=== PATIENT | female | born 1980 | race Caucasian/White ===

== ENCOUNTER 2020-04-30 08:57 | Day surgery (SDC) | payer MEDICAID, SELFPAY ==
--- NOTE | 2020-04-28 08:57 | P.CONAN_ITS ---
Documented by User: Apoorva Bush 04/28/20 08:59 HPI - Anesthesia Eval Consult details Narrative: 40yo F for Colonoscopy and EGD [facility] Past Medical History Medical History Abdominal wall mass Asthma History of colitis Surgical History Surgical History Hx of section Hx of hysterectomy Social History Social History Smoking Status: Never smoker Second Hand Smoke Exposure: No Use of substances other than those prescribed or required for medical reasons: No Advance Directives: No Advance Directives Information Provided: No Recently lost weight without trying: No Meds Allergies Allergy/AdvReac Type Severity Reaction Status Date / Time almond Allergy Severe ANAPHYLAXIS Verified 04/23/20 10:44 soy [SOY] Allergy Severe ANAPHYLAXIS Verified 04/23/20 10:44 Home Medications Medication Instructions Recorded Confirmed Type fluoxetine 40 mg PO QAM 04/23/20 04/23/20 History gabapentin 300 mg PO BEDTIME 04/23/20 04/23/20 History ipratropium bromide [Atrovent HFA] 2 puff INHALATION QID 04/23/20 04/23/20 History loratadine 10 mg PO DAILY 04/23/20 04/23/20 History lorazepam 0.5 mg PO QAM 04/23/20 04/23/20 History lorazepam 1 mg PO BEDTIME 04/23/20 04/23/20 History mometasone [Nasonex] 2 spray INTRANASAL DAILY 04/23/20 04/23/20 History Exam Exam Date and Time: April 28, 2020 0857 Pertinent Lab Results Pertinent Lab Results: Laboratory Tests 02/01/20 02/01/20 16:05 16:05 WBC 7.1 Hgb 15.3 Hct 45.9 Plt Count 277 Sodium 141 Potassium 4.6 D Chloride 105 BUN 13 Creatinine 0.82 Assessment and Plan Assessment Anesthesia Assessment: Chart Reviewed Documented by User: Farshad Alaniz 04/30/20 11:25 [facility] Past Medical History Medical History Abdominal wall mass Asthma History of colitis Surgical History Surgical History Hx of section Hx of hysterectomy Social History Social History Smoking Status: Never smoker Second Hand Smoke Exposure: No Use of substances other than those prescribed or required for medical reasons: No Advance Directives: No Advance Directives Information Provided: No Recently lost weight without trying: No Meds Allergies Allergy/AdvReac Type Severity Reaction Status Date / Time almond Allergy Severe ANAPHYLAXIS Verified 04/23/20 10:44 soy [SOY] Allergy Severe ANAPHYLAXIS Verified 04/23/20 10:44 Home Medications Medication Instructions Recorded Confirmed Type fluoxetine 40 mg PO QAM 04/23/20 04/23/20 History gabapentin 300 mg PO BEDTIME 04/23/20 04/23/20 History ipratropium bromide [Atrovent HFA] 2 puff INHALATION QID 04/23/20 04/23/20 History loratadine 10 mg PO DAILY 04/23/20 04/23/20 History lorazepam 0.5 mg PO QAM 04/23/20 04/23/20 History lorazepam 1 mg PO BEDTIME 04/23/20 04/23/20 History mometasone [Nasonex] 2 spray INTRANASAL DAILY 04/23/20 04/23/20 History Exam Airway Mallampati Class: II TM Dist: >3cm Neck ROM: Full Loose/Missing/Broken Teeth: Yes Heart: RRR Assessment and Plan Assessment Anesthesia Assessment: Anesthesia Plan Discussed Final Anesthetic Review NPO: Yes ASA Class: II Final Preanesthetic Review: Consent Obtained/Reviewed Anesthetic Plan Anesthetic Plan: MAC:
[2020-04-30 10:41] LABS: SARS COV2 PCR INHOUSE NEGATIVE (Negative)
[2020-04-30 10:59] VITALS: BMI 30.1
[2020-04-30 11:02] VITALS: BP 119/73; PULSE 83; RESP 18; TEMP 36.6; O2SAT 98
[2020-04-30] MEDS: Lactated Ringers 1,000 ML 100 ML IVCONT (11:12)
--- NOTE | 2020-04-30 11:24 | P.HPSUR_ITS ---
Pre-Procedural Eval Section B Chief Complaint: Epigastric Pain Details of Present Illness: rectal bleeding and upper abdo pain Relevant Family History (Specify if Yes): No Relevant Social History: None Present Medications: see Short Stay Collaborative assessment Medical History: Significant History (rotator cuff) History of Previous Operations: Relevant previous surgery/procedure and date(s) (hysterectomy, c section) Allergies: Allergies Allergy/AdvReac Type Severity Reaction Status Date / Time almond Allergy Severe ANAPHYLAXIS Verified 04/23/20 10:44 soy [SOY] Allergy Severe ANAPHYLAXIS Verified 04/23/20 10:44 Review of Systems Sugical H&P ROS: Negative: Constitution, Cardiovascular, Respiratory, Neurological, Psychiatric, Hem-Onc, Allergic/Immunologic, Gastrointestinal, Genitourinary, Musculoskeletal, Integumentary, Endocrine and Eyes/Ears/Nose/ Throat Exam Surgical H&P Exam: Normal: HEENT, Normal: Heart, Normal: Lungs, Normal: Extremities, Normal: Abdomen, Normal: Skin and Normal: Neurological Plan Diagnosis/Plan: Unchanged Patient has been examined and remains a candidate for the planned procedure
--- NOTE | 2020-04-30 12:01 | P.BOP_ITS ---
Brief Operative Note Date of procedure: 04/30/20 Pre-op diagnosis: epigastric pain, rectal bleeding Post-op diagnosis: same Procedure: Operative Information Procedure Description: EGD, Colonoscopy FLEXIBLE TRANSORAL UPPER GASTROINTESTINAL ENDOSCOPY AND COLONOSCOPY PROCEDURE NOTE UPPER ENDOSCOPY Consent: Indications for the procedure and potential complications of bleeding, perforation, reaction to medications and missed diagnosis were discussed with the patient and informed consent was obtained. Instrument: Olympus GIF H 190 J mid size upper endoscope Monitoring: Vital signs and clinical assessment, continuous EKG monitoring, Pulse oximetry, Carbon Dioxide monitoring and blood pressure monitoring were done throughout the procedure. Procedure: The patient was placed in the left lateral decubitis position and pre-procedure medications were administered and a bite block was placed. The endoscope was inserted into the mouth and advanced under direct vision to the third part of duodenum. A careful inspection was made as the upper endoscope was withdrawn including a retroflexed examination of the proximal stomach; Findings and interventions are described below. Findings: Larynx:normal Esophagus: GE junction at 37 cm, diaphragm hiatus at 37 cm, normal mucosa, random bx taken Stomach: Mild erythema. Biopsies were obtained. Grade 2 flap valve on retroflexed examination of the cardia. Duodenum: Normal bulb and descending duodenum, bx taken Intervention: Biopsies as noted above COLONOSCOPY Instrument: Olympus variable stiffness pediatric scope 190L Colonoscopy Monitoring: Vital signs and clinical assessment, continuous EKG monitoring, Pulse oximetry, Carbon Dioxide monitoring and blood pressure monitoring were done throughout the procedure. Colon withdrawal time was 4 minutes. Procedure: The patient was placed in the left lateral decubitis position and pre-procedure medications were administered. After a digital rectal examination of the ano-rectum, the video colonoscope was inserted into the rectum and advanced through the colon to the cecum/TI. The colonoscope was slowly withdrawn in a retrograde panoramic fashion and the colon mucosa was carefully examined including a retroflexed view of the rectum. Findings and interventions are described below. Procedure Difficulty: Findings: bx taken from TI and random colon Terminal Ileum-normal Cecum:normal Ascending Colon: normal Transverse Colon -normal Descending Colon:normal Sigmoid Colon: normal Rectum: Retroflexion with small internal hemorrhoids, grade I with skin tags Anorectum - normal Colon preparation: [place] Bowel Preparation Scale Right colon; 3 Transverse colon: 3 Left colon; 3 (0 = Unprepared colon segment with mucosa not seen due to solid stool that cannot be cleared. 1 = Portion of mucosa of the colon segment seen, but other areas of the colon segment not well seen due to staining, residual stool and/or opaque liquid. 2 = Minor amount of residual staining, small fragments of stool and/or opaque liquid, but mucosa of colon segment seen well. 3 = Entire mucosa of colon segment seen well with no residual staining, small fragments of stool or opaque liquid) Impression and Post Procedure Diagnosis: Endoscopy Findings: gastritis Colonoscopy Findings: internal hemorrhoids Plan: Await Pathology results Repeat Colonoscopy aged 45-50 yr sof age for screening or earlier if clinically indicated High fiber diet leaflet avoid straining at stool, epsom salts and sitz bath prn, anusol supps or cream prn If H pylori pos then treat Above findings were reviewed with the patient and relevant handouts were provided if indicated. Surgeon: Nida Hsieh MD Anesthesia: MAC Condition: stable Disposition: PACU
[2020-04-30 12:11] VITALS: BP 101/62; PULSE 83; RESP 12; TEMP 36.1; O2SAT 99
[2020-04-30 12:24] VITALS: BP 112/67; PULSE 80; RESP 18; TEMP 36.1; O2SAT 99
--- NOTE | 2020-04-30 12:47 | HO.POSTANES ---
Post Anesthesia Evaluation Post Anesthesia Evaluation Vital Signs: Vital Signs Temp Pulse Resp BP Pulse Ox 04/30/20 12:24 97 F 80 18 112/67 99 04/30/20 12:11 96.9 F 83 12 101/62 99 04/30/20 11:02 97.9 F 83 18 119/73 98 Anesthesia: Monitored Mental Status: Awake Pain Control: Satisfactory Nausea/Vomiting: None Hydration: Adequate Anesthesia-Related Issues: No Anes. Related Issues
== END 2020-04-30 12:55 | disposition home or self-care (01) ==
PROVIDERS: Nurse Practitioner; PCP Student in an Organized Health Care Education/Training Program; Visit Provider Internal Medicine Gastroenterology
PROC: (CPT 45380; principal; 2020-04-30 11:40)
DX: K62.5 Hemorrhage of anus and rectum (principal); K64.0 First degree hemorrhoids; K64.4 Residual hemorrhoidal skin tags; K29.70 Gastritis, unspecified, without bleeding; K52.9 Noninfective gastroenteritis and colitis, unspecified; K44.9 Diaphragmatic hernia without obstruction or gangrene; J45.909 Unspecified asthma, uncomplicated; Z91.018 Allergy to other foods; Z79.51 Long term (current) use of inhaled steroids; Z79.899 Other long term (current) drug therapy
CPT/HCPCS: 45380; 43239; 87635; 88305; 88342; J3010

== ENCOUNTER 2020-07-01 15:32 | Outpatient (REF) | payer MEDICAID, SELFPAY ==
--- NOTE | 2020-07-01 15:39 | XR_ITS ---
EXAMINATION: XR KNEE, RIGHT CLINICAL INFORMATION: Pain COMPARISON: Previous x-ray March 2015 TECHNIQUE: Four views of the right knee. FINDINGS: Bones and soft tissues are normal. No fracture or joint effusion. Alignment is anatomic. Joint spaces are well maintained. No abnormal soft tissue calcification. XR/XR knee RT 4V IMPRESSION: Normal right knee.
== END 2020-07-01 15:33 | disposition home or self-care (01) ==
LOC: HO.XRAY 15:32
PROVIDERS: PCP Student in an Organized Health Care Education/Training Program; Visit Provider Student in an Organized Health Care Education/Training Program
DX: M25.562 Pain in left knee (principal)
CPT/HCPCS: 73564

== ENCOUNTER → 2020-07-03 10:35 | Outpatient (BNVA) | payer MEDICAID, SELFPAY | PROVIDERS: PCP Student in an Organized Health Care Education/Training Program; Visit Provider Internal Medicine Gastroenterology | DX: Z76.89 Persons encountering health services in other specified circumstances (principal) ==

== ENCOUNTER → 2020-07-29 08:25 | Outpatient (BNVA) | payer MEDICAID, SELFPAY | PROVIDERS: PCP Student in an Organized Health Care Education/Training Program; Visit Provider Internal Medicine Gastroenterology | DX: Z76.89 Persons encountering health services in other specified circumstances (principal) ==

== ENCOUNTER → 2020-09-25 11:07 | Outpatient (BNVA) | payer MEDICAID, SELFPAY | PROVIDERS: PCP Student in an Organized Health Care Education/Training Program; Visit Provider Internal Medicine Gastroenterology ==

== ENCOUNTER 2020-10-08 09:23 | Outpatient (REF) | payer MEDICAID, SELFPAY ==
--- NOTE | ~2020-10-08 | XR_ITS ---
EXAMINATION: XR BILATERAL HANDS XR BILATERAL FEET CLINICAL INFORMATION: Pain COMPARISON: 04/14/2014 TECHNIQUE: 4 views of the right hand and wrist, 4 views of the left hand and wrist, 3 views of each foot. FINDINGS: There is no evidence of acute fracture or dislocation of the left foot. Left foot joint spaces are maintained. No destructive bony lesions. No significant soft tissue swelling. There is a small plantar calcaneal spur. No radiopaque foreign body. 3 views of the right foot do not demonstrate any evidence of acute fracture or dislocation. No significant soft tissue swelling. Joint spaces are maintained. No radiopaque foreign body. Plantar calcaneal spur is seen. Views of the right hand and wrist do not demonstrate any evidence of acute fracture or dislocation. Joint spaces maintained. No destructive bony lesions. No significant soft tissue swelling. No erosive changes are seen. Views of the left hand and wrist do not demonstrate any evidence of acute fracture or dislocation. Joint spaces maintained. No significant soft tissue swelling. No erosive changes noted. XR/XR hand wrist LT IMPRESSION: No significant bony abnormality of the hands or feet.
--- NOTE | ~2020-10-08 | XR_ITS ---
EXAMINATION: XR BILATERAL HANDS XR BILATERAL FEET CLINICAL INFORMATION: Pain COMPARISON: 04/14/2014 TECHNIQUE: 4 views of the right hand and wrist, 4 views of the left hand and wrist, 3 views of each foot. FINDINGS: There is no evidence of acute fracture or dislocation of the left foot. Left foot joint spaces are maintained. No destructive bony lesions. No significant soft tissue swelling. There is a small plantar calcaneal spur. No radiopaque foreign body. 3 views of the right foot do not demonstrate any evidence of acute fracture or dislocation. No significant soft tissue swelling. Joint spaces are maintained. No radiopaque foreign body. Plantar calcaneal spur is seen. Views of the right hand and wrist do not demonstrate any evidence of acute fracture or dislocation. Joint spaces maintained. No destructive bony lesions. No significant soft tissue swelling. No erosive changes are seen. Views of the left hand and wrist do not demonstrate any evidence of acute fracture or dislocation. Joint spaces maintained. No significant soft tissue swelling. No erosive changes noted. XR/XR hand wrist RT IMPRESSION: No significant bony abnormality of the hands or feet.
--- NOTE | ~2020-10-08 | XR_ITS ---
EXAMINATION: XR BILATERAL HANDS XR BILATERAL FEET CLINICAL INFORMATION: Pain COMPARISON: 04/14/2014 TECHNIQUE: 4 views of the right hand and wrist, 4 views of the left hand and wrist, 3 views of each foot. FINDINGS: There is no evidence of acute fracture or dislocation of the left foot. Left foot joint spaces are maintained. No destructive bony lesions. No significant soft tissue swelling. There is a small plantar calcaneal spur. No radiopaque foreign body. 3 views of the right foot do not demonstrate any evidence of acute fracture or dislocation. No significant soft tissue swelling. Joint spaces are maintained. No radiopaque foreign body. Plantar calcaneal spur is seen. Views of the right hand and wrist do not demonstrate any evidence of acute fracture or dislocation. Joint spaces maintained. No destructive bony lesions. No significant soft tissue swelling. No erosive changes are seen. Views of the left hand and wrist do not demonstrate any evidence of acute fracture or dislocation. Joint spaces maintained. No significant soft tissue swelling. No erosive changes noted. XR/XR foot LT 2V IMPRESSION: No significant bony abnormality of the hands or feet.
--- NOTE | ~2020-10-08 | XR_ITS ---
EXAMINATION: XR BILATERAL HANDS XR BILATERAL FEET CLINICAL INFORMATION: Pain COMPARISON: 04/14/2014 TECHNIQUE: 4 views of the right hand and wrist, 4 views of the left hand and wrist, 3 views of each foot. FINDINGS: There is no evidence of acute fracture or dislocation of the left foot. Left foot joint spaces are maintained. No destructive bony lesions. No significant soft tissue swelling. There is a small plantar calcaneal spur. No radiopaque foreign body. 3 views of the right foot do not demonstrate any evidence of acute fracture or dislocation. No significant soft tissue swelling. Joint spaces are maintained. No radiopaque foreign body. Plantar calcaneal spur is seen. Views of the right hand and wrist do not demonstrate any evidence of acute fracture or dislocation. Joint spaces maintained. No destructive bony lesions. No significant soft tissue swelling. No erosive changes are seen. Views of the left hand and wrist do not demonstrate any evidence of acute fracture or dislocation. Joint spaces maintained. No significant soft tissue swelling. No erosive changes noted. XR/XR foot RT 2V IMPRESSION: No significant bony abnormality of the hands or feet.
[2020-10-08 10:54] LABS: MANUAL DIFF FLAG NO
[2020-10-08 11:02] LABS: Basophils Percent Auto 0.6 % (0-2); Eosinophils Absolute Auto 0.1 X10*3/uL (0.0-0.4); Eosinophils Percent Auto 2.5 % (0-4); Hematocrit 44.5 % (37-47); Hemoglobin 14.6 g/dl (12.0-16.0); Imm Gran Abs Auto 0.01 X10*3/uL (0.00-0.03); Imm Gran Pct Auto 0.2 % (0.0-0.4); Lymphocytes Absolute Auto 1.5 X10*3/uL (1.2-4.9); Lymphocytes Percent Auto 28.6 % (20-40); Mean Corpuscular HGB Conc 32.8 g/dl (31.0-35.0); Mean Corpuscular Volume 91.6 fL (80-98); Mean Platelet Volume 10.2 fL (9.4-12.3); Monocytes Absolute Auto 0.4 X10*3/uL (0.1-1.2); Monocytes Percent Auto 7.4 % (2-11); Neutrophils Absolute Auto 3.1 X10*3/uL (2.0-8.3); Neutrophils Percent Auto 60.7 % (45-73); Platelet Count 288 X10*3/uL (160-400); Red Blood Count 4.86 X10*6/uL (4.20-5.50); Red Cell Distribution Width 12.6 % (11.0-16.0); White Blood Count 5.1 X10*3/uL (4.8-10.8)
[2020-10-08 11:26] LABS: Alanine Aminotransferase 33 U/L (0-31); Albumin Level 4.3 g/dL (3.5-5.0); Alkaline Phosphatase 73 U/L (39-117); Anion Gap 13 (12-20); Aspartate Amino Transferase 25 U/L (5-31); Bilirubin Total 0.3 mg/dL (0.0-1.0); Blood Urea Nitrogen 16 mg/dL (9-16); C Reactive Protein 0.27 mg/dL (< or = 0.50); Calcium 9.6 mg/dL (8.4-10.2); Carbon Dioxide 25 mmol/L (22-29); Chloride 107 mmol/L (96-108); Estimated Glomerular Filt Rate > 60; Glucose Random 97 mg/dL (60-115); Potassium 4.7 mmol/L (3.3-5.1); Rheumatoid Factor < 15.0 IU/mL (<15.0); Sodium 140 mmol/L (135-145); Total Protein 7.3 g/dL (6.5-8.0)
[2020-10-08 11:38] LABS: HBsAGNum1 0.19 S/CO (0.00-0.99); Hepatitis B Surface Antigen Negative (Negative)
[2020-10-08 11:56] LABS: HBS Num1 27.18 mIU/mL (0-7.99); HBc Num1 0.07 S/CO (0.00-0.79); Hepatitis B Core Antibody Nonreactive (Nonreactive); ~HepC Num1 0.08 S/CO (0.00-0.79); ~Hepatitis B Surface Antibody REACTIVE (Nonreactive); ~Hepatitis C Antibody Nonreactive (Nonreactive)
[2020-10-08 12:46] LABS: Erythrocyte Sedimentation Rate 6 MM/HR (0-20)
[2020-10-09 04:48] LABS: Hepatitis A Antibody IgM 0.22 Index (0-0.79); ~Hepatitis A Antibody IgM Nonreactive (Nonreactive)
[2020-10-09 12:12] LABS: Antibody to SS-A Antigen <1.0 NEG AI (<1.0 NEG); Antibody to SS-B Antigen <1.0 NEG AI (<1.0 NEG)
[2020-10-09 22:17] LABS: Cyclic Citrullinated Peptide <16 UNITS
[2020-10-10 19:16] LABS: TS Negative Control Passed; TS Panel A 0; TS Panel B 0; TS Positive Control Passed; TSpotTB Negative (SeeBelow)
[2020-10-12 23:16] LABS: Anti Nuclear Antibody Screen POSITIVE (NEGATIVE); Anti Nuclear Antibody Titer 1:40 titer
== END 2020-10-08 09:24 | disposition home or self-care (01) ==
LOC: HO.LAB 09:23
PROVIDERS: PCP Student in an Organized Health Care Education/Training Program; Visit Provider Student in an Organized Health Care Education/Training Program
DX: M25.50 Pain in unspecified joint (principal); Z79.899 Other long term (current) drug therapy
CPT/HCPCS: 36415; 73110; 73130; 73620; 80053; 85025; 85652; 86038; 86039; 86140; 86200; 86235; 86431; 86481; 86704; 86706; 86709; 86803; 87340; 99202

== ENCOUNTER → 2020-10-14 08:49 | Outpatient (BNVA) | payer MEDICAID, SELFPAY | PROVIDERS: PCP Student in an Organized Health Care Education/Training Program; Visit Provider Student in an Organized Health Care Education/Training Program | DX: M25.50 Pain in unspecified joint (principal); M79.7 Fibromyalgia | CPT/HCPCS: 99212 ==

== ENCOUNTER → 2020-10-19 09:49 | Outpatient (BNVA) | payer MEDICAID, SELFPAY | PROVIDERS: PCP Student in an Organized Health Care Education/Training Program; Visit Provider Internal Medicine Gastroenterology ==

== ENCOUNTER 2021-01-17 14:39 | Emergency (ER) | payer MEDICAID, SELFPAY ==
--- NOTE | ~2021-01-17 | XR_ITS ---
EXAMINATION: XR SHOULDER, LEFT CLINICAL INFORMATION: Left shoulder pain. COMPARISON: None TECHNIQUE: Three views of the left shoulder. FINDINGS: The bones and soft tissues are normal. No fracture. Glenohumeral and acromioclavicular alignment is anatomic with normal joint space. No abnormal soft tissue calcifications. XR/XR shoulder LT min 2V IMPRESSION: Unremarkable radiographic appearance of the left shoulder.
[2021-01-17 14:45] VITALS: BP 107/60; PULSE 89; RESP 18; TEMP 36.3; O2SAT 98; BMI 29.7
[2021-01-17 15:15] VITALS: BP 110/72; PULSE 88; RESP 18; TEMP 36.6; O2SAT 99
--- NOTE | 2021-01-17 15:24 | ED_ITS ---
HPI - Extremity Problem General Chief complaint: Extremity Injury, Upper Stated complaint: L SHOULDER PAIN Time Seen by Provider: 01/17/21 14:51 History of Present Illness HPI Narrative: patient complains of left shoulder pain worse with movement over the past several days without any known injury no neck pain no numbness weakness or tingling Related Data Home Medications Medication Instructions Recorded Confirmed ipratropium bromide [Atrovent HFA] 2 puff INHALATION QID 04/23/20 10/14/20 loratadine 10 mg PO DAILY 04/23/20 10/14/20 lorazepam 0.5 mg PO QAM 04/23/20 10/14/20 mometasone [Nasonex] 2 spray INTRANASAL DAILY 04/23/20 10/14/20 ibuprofen 800 mg tablet 800 mg PO Q8H 10/08/20 10/14/20 Previous Rx's Medication Instructions Recorded hydrocortisone 2.5 % topical cream 1 appl CO BID-QID PRN #30 g 07/03/20 with perineal applicator ondansetron HCl 4 mg tablet 4 mg PO Q8H PRN #30 tab 07/03/20 bisacodyl 5 mg tablet,delayed 10 mg PO ONCE 1 Days #2 tab 07/23/20 release polyethylene glycol 3350 17 238 g PO ONCE 1 Days #238 g 07/23/20 gram/dose oral powder pantoprazole 40 mg tablet,delayed 40 mg PO DAILY #90 tab 10/19/20 release Allergies Allergy/AdvReac Type Severity Reaction Status Date / Time almond Allergy Severe ANAPHYLAXIS Verified 01/17/21 14:45 soy [SOY] Allergy Severe ANAPHYLAXIS Verified 01/17/21 14:45 Review of Systems Review of Systems: positive for left shoulder pain Negatives are no fever no chills no dizziness no weakness no headache no neck pain no chest pain no shortness of breath no numbness weakness or tingling no skin rash no other extremity pain or swelling Yes all other systems are reviewed and are negative PMFSH Past Medical History Source: nursing notes reviewed Medical History Abdominal wall mass Asthma History of colitis Surgical History History of colonoscopy Hx of section Hx of endoscopy Hx of hysterectomy Family History Family History Father No problems noted. Mother No problems noted. Social History Social History (Updated 10/19/20 @ 09:51 by SARITA Rm) Household Members: Children Alcohol intake: current Alcohol intake frequency: does not drink Second Hand Smoke Exposure: No Advance Directives: No Advance Directives Information Provided: No Physical Exam Vital Signs: Vital Signs: Last Vital Signs Temp 97.9 F 01/17/21 15:15 Pulse 88 01/17/21 15:15 Resp 18 01/17/21 15:15 BP 110/72 01/17/21 15:15 Pulse Ox 99 01/17/21 15:15 Body Mass Index 29.7 general appearance no distress Head is normocephalic atraumatic Neck is supple Chest is clear Heart no murmur Extremities the right shoulder has anterior tenderness, range of motion mildly limited on extension external rotation in abduction by pain, no redness no warmth, skin is normal, neurovascular intact distal Other extremities normal Skin no rash Neuro no gross motor or sensory deficit Course Course Course Narrative: left shoulder x-ray was normal Patient pain in left shoulder but good range of motion and good use of the shoulder is advised to follow with orthopedics and is well-appearing and is discharged Discharge Plan Discharge Clinical Impression: Arthralgia of left shoulder region Patient Disposition: Home, Self-Care Additional Instructions: x-ray did not reveal any acute problem Exam showed you could have tendinitis or possibly rotator cuff issues If this does not resolve with rest over the next week or 2 follow with orthopedist for further evaluation and possible steroid shot Return any time any worse condition or any concerns Prescriptions: No Action lorazepam 0.5 mg Tablet 0.5 mg PO QAM RF: 0 mometasone [Nasonex] 50 mcg/actuation [place],Non-Aerosol 2 spray INTRANASAL DAILY RF: 0 loratadine 10 mg Tablet 10 mg PO DAILY RF: 0 Atrovent HFA 17 mcg/actuation Hfa Aerosol Inhaler 2 puff INHALATION QID RF: 0 hydrocortisone [Anusol-HC] 2.5 % cream with perineal applicator 1 appl CO BID-QID PRN (Reason: hemorrhoids) Qty: 30 RF: 0 ondansetron HCl [Zofran] 4 mg tablet 4 mg PO Q8H PRN (Reason: nausea and vomiting) Qty: 30 RF: 1 ibuprofen 800 mg tablet 800 mg PO Q8H RF: 0 pantoprazole 40 mg tablet,delayed release (DR/EC) 40 mg PO DAILY Qty: 90 RF: 1 bisacodyl [Dulcolax (bisacodyl)] 5 mg tablet,delayed release (DR/EC) 10 mg PO ONCE 1 Days Qty: 2 RF: 0 polyethylene glycol 3350 [Miralax] 17 gram/dose powder 238 g PO ONCE 1 Days Qty: 238 RF: 0 Referrals: Gomez Sanchez MD [Physician] - 2 days Interventions: ED Discharge Assessment Last Done: 01/17/21 15:51 Discharge Date/Time: 01/17/21 15:53
== END 2021-01-17 15:53 | disposition home or self-care (01) ==
PROVIDERS: Emergency Provider Emergency Medicine; PCP Student in an Organized Health Care Education/Training Program
DX: M25.512 Pain in left shoulder (principal)
CPT/HCPCS: 73030; 99282; 99283

== ENCOUNTER → 2021-02-09 14:00 | Outpatient (BNVA) | payer MEDICAID, SELFPAY | PROVIDERS: PCP Student in an Organized Health Care Education/Training Program; Visit Provider Physician Assistant | DX: M75.42 Impingement syndrome of left shoulder (principal); Z91.018 Allergy to other foods | CPT/HCPCS: 99202 ==

== ENCOUNTER 2021-02-23 08:12 | Outpatient (REF) | payer MEDICAID, SELFPAY | END 2021-02-23 08:13 | disposition home or self-care (01) | LOC: HO.HOSX 08:12 | PROVIDERS: Visit Provider Physician Assistant | DX: Z13.89 Encounter for screening for other disorder (principal) ==

== ENCOUNTER → 2021-03-26 10:47 | Outpatient (BNVA) | payer MEDICAID, SELFPAY | PROVIDERS: Visit Provider Internal Medicine Gastroenterology | DX: K62.5 Hemorrhage of anus and rectum (principal) | CPT/HCPCS: 99212 ==

== ENCOUNTER → 2021-04-09 13:28 | Outpatient (BNVA) | payer MEDICAID, SELFPAY | PROVIDERS: PCP Student in an Organized Health Care Education/Training Program; Visit Provider Physician Assistant | DX: M54.12 Radiculopathy, cervical region (principal); M75.42 Impingement syndrome of left shoulder | CPT/HCPCS: 99212 ==

== ENCOUNTER → 2021-05-05 14:25 | Outpatient (BNVA) | payer MEDICAID, SELFPAY | PROVIDERS: PCP Student in an Organized Health Care Education/Training Program; Visit Provider Surgery | DX: K64.4 Residual hemorrhoidal skin tags (principal); K64.8 Other hemorrhoids | CPT/HCPCS: 46600; 99212 ==

== ENCOUNTER → 2021-05-07 13:02 | Outpatient (BNVA) | payer MEDICAID, SELFPAY | PROVIDERS: PCP Student in an Organized Health Care Education/Training Program; Visit Provider Nurse Practitioner Family | DX: M54.16 Radiculopathy, lumbar region (principal); Z91.018 Allergy to other foods | CPT/HCPCS: 99202 ==

== ENCOUNTER 2021-07-26 10:04 | Outpatient (RCR) | payer MEDICAID, SELFPAY ==
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
== END 2021-08-30 14:33 | disposition home or self-care (01) ==
LOC: HO.PT 10:04
PROVIDERS: PCP Student in an Organized Health Care Education/Training Program; Visit Provider Nurse Practitioner Family
DX: M79.18 Myalgia, other site (principal); M54.2 Cervicalgia
CPT/HCPCS: 97110; 97162; 97530

== ENCOUNTER 2021-09-08 07:52 | Outpatient (REF) | payer MEDICAID, SELFPAY ==
--- NOTE | ~2021-09-08 | XR_ITS ---
EXAMINATION: AP STANDING BOTH KNEES SUNRISE AND LATERAL VIEWS OF THE LEFT KNEE CLINICAL INFORMATION: Left knee pain. COMPARISON: 03/26/2015. TECHNIQUE: AP standing views of both knees and sunrise and lateral views of the left knee. FINDINGS: AP standing views of both knees do not demonstrate any evidence of acute fracture or dislocation. The medial and lateral joint space compartments appear maintained. [place] and lateral views of the left knee demonstrate a normal-appearing patellofemoral joint. No knee effusion is appreciated. XR/XR knee standing BI IMPRESSION: No significant abnormality is seen on AP standing views of both knees as well as left knee lateral and sunrise views.
--- NOTE | ~2021-09-08 | XR_ITS ---
EXAMINATION: AP STANDING BOTH KNEES SUNRISE AND LATERAL VIEWS OF THE LEFT KNEE CLINICAL INFORMATION: Left knee pain. COMPARISON: 03/26/2015. TECHNIQUE: AP standing views of both knees and sunrise and lateral views of the left knee. FINDINGS: AP standing views of both knees do not demonstrate any evidence of acute fracture or dislocation. The medial and lateral joint space compartments appear maintained. [place] and lateral views of the left knee demonstrate a normal-appearing patellofemoral joint. No knee effusion is appreciated. XR/XR knee LT 2V IMPRESSION: No significant abnormality is seen on AP standing views of both knees as well as left knee lateral and sunrise views.
== END 2021-09-08 07:53 | disposition home or self-care (01) ==
LOC: HO.HOSX 07:52
PROVIDERS: Visit Provider Physician Assistant
DX: M23.92 Unspecified internal derangement of left knee (principal)
CPT/HCPCS: 73560; 73565; 99212

== ENCOUNTER 2022-01-11 19:07 | Emergency (ER) | payer MEDICAID, SELFPAY ==
--- NOTE | ~2022-01-11 | CT_ITS ---
EXAMINATION: CT ABDOMEN AND PELVIS WITHOUT CONTRAST CLINICAL INFORMATION: Left-sided flank pain COMPARISON: CT abdomen pelvis 02/03/2020 TECHNIQUE: Multidetector volumetric imaging was performed from the superior aspect of the liver through the pubic symphysis. Sagittal and coronal reformatted images were obtained on the technologist's workstation. This CT examination was performed using dose optimization techniques as appropriate, variously including the following: *Automated exposure control *Adjustment of mA and/or kV according to patient size (this includes techniques or standardized protocols for targeted exams where dose is matched to indication/reason for exam; i.e. extremities or head) *Use of iterative reconstruction technique DLP: 584 mGy-cm FINDINGS: LUNG BASES: The visualized lung bases are unremarkable. LIVER, GALLBLADDER, AND BILIARY TREE: The liver is normal in size, shape, and attenuation. No focal hepatic lesion or biliary ductal dilatation is present. The gallbladder is unremarkable with no evidence of radiopaque gallstones, gallbladder wall thickening, or obvious pericholecystic inflammatory changes. PANCREAS: Unremarkable. SPLEEN: Unremarkable. ADRENAL GLANDS: There is a stable 1.4 cm fat density right adrenal benign adenoma. The left adrenal gland appears normal. KIDNEYS AND URETERS: The kidneys are normal in size, shape, and attenuation. At least 6 tiny punctate nonobstructing calculi are present on the left kidney with with about 7 similar tiny punctate calculi noted on the right. The largest calculus is on the left measuring 3 mm (4:215). Appearances are similar to prior. No hydronephrosis, hydroureter, or ureteral calculi seen. No perinephric stranding. BLADDER: Unremarkable. GASTROINTESTINAL TRACT: The small and large bowel are unremarkable. The appendix is unremarkable. ABDOMINAL WALL: No significant hernia is appreciated. LYMPH NODES: Normal. VASCULAR: Unremarkable. PELVIC VISCERA: Unremarkable. OSSEOUS STRUCTURES: Unremarkable. CT/CT abdomen pelvis wo con IMPRESSION: Bilateral nonobstructing renal calculi. No other significant abnormality is seen. Fleischner guidelines were followed.
[2022-01-11 20:49] VITALS: BP 130/83; PULSE 75; RESP 15; TEMP 36.8; O2SAT 100; BMI 30.1
--- NOTE | 2022-01-11 21:26 | ED_ITS ---
HPI - Female Genitourinary General Chief complaint: Urogenital-Female Stated complaint: left kidney pain Source: patient Mode of arrival: ambulatory Limitations: no limitations History of Present Illness HPI Narrative: 41-year-old female presents with 2 days of flank pain, urinary urgency, headaches, and nausea. Did note that for several weeks she has had intermittent sharp stabbing starting from the left flank going to the abdomen. She does have a history of kidney stones with infection. She did take some Tylenol with poor effect earlier today. She does not report fevers, chills, abdominal distention, vomiting, chest pain and palpitations, shortness of breath, shortness of breath on exertion, or edema. MD elicited complaint: flank pain and difficulty urinating Pertinent past history: pyelonephritis Onset (ago): day(s) (2) Location of symptoms: LLQ and flank Severity: moderate Severity scale (1-10): 5 Quality of pain: cramping, sharp and stabbing Consistency: intermittent and progressively worsening Vaginal discharge: none Vaginal bleeding: none Urinary symptoms: Urgency, Frequency and Flank Pain Exacerbating factors: urination and movement Relieving factors: none Associated symptoms: headaches, loss of appetite and nausea Treatment prior to arrival: none Sexual activity: No Patient : No Related Data Home Medications Medication Instructions Recorded Confirmed ipratropium bromide 17 2 puff inhalation QID 04/23/20 05/05/21 mcg/actuation HFA aerosol inhaler (Atrovent HFA) loratadine 10 mg tablet 10 mg PO DAILY 04/23/20 05/05/21 lorazepam 0.5 mg tablet 0.5 mg PO QAM 04/23/20 05/05/21 mometasone 50 mcg/actuation nasal 2 spray intranasal DAILY 04/23/20 05/05/21 spray (Nasonex) ibuprofen 800 mg tablet 800 mg PO Q8H 10/08/20 05/05/21 Previous Rx's Medication Instructions Recorded hydrocortisone 2.5 % topical cream 1 appl [place] BID-QID PRN hemorrhoids 07/03/20 with perineal applicator #30 grams (Anusol-HC) ondansetron HCl 4 mg tablet 4 mg PO Q8H PRN nausea and 07/03/20 (Zofran) vomiting #30 tabs bisacodyl 5 mg tablet,delayed 10 mg PO ONCE Bowel Preparation 1 07/23/20 release (Dulcolax (bisacodyl)) day #2 tabs polyethylene glycol 3350 17 238 g PO ONCE 1 day #238 grams 07/23/20 gram/dose oral powder (Miralax) gabapentin 100 mg capsule 100 mg PO BEDTIME #60 caps 03/26/21 ondansetron 4 mg disintegrating 4 mg PO Q8H #60 tabs 03/26/21 tablet pantoprazole 40 mg tablet,delayed 40 mg PO DAILY #90 tabs 05/19/21 release celecoxib 200 mg capsule (Celebrex) 200 mg PO BID shoulder impingement 09/08/21 30 days #60 caps ibuprofen 600 mg tablet 600 mg PO Q6H PRN pain #30 tabs 01/11/22 tamsulosin 0.4 mg capsule (Flomax) 0.4 mg PO DAILY 21 days #21 caps 01/11/22 Allergies Allergy/AdvReac Type Severity Reaction Status Date / Time almond Allergy Severe ANAPHYLAXIS Verified 05/07/21 13:12 soy [SOY] Allergy Severe ANAPHYLAXIS Verified 05/07/21 13:12 Review of Systems Review of Systems: Constitutional: No Fever, No Chills ENT/Mouth: No sore throat Eyes: No Eye Pain, No Swelling, No Redness Cardiovascular: No Chest Pain, No SOB Respiratory: No Cough, No Sputum, No Wheezing Gastrointestinal: positive Nausea, positive Vomiting, No Diarrhea, positive abdominal pain Genitourinary: positive Dysuria, positive urinary frequency, positive Hematuria, positive Flank Pain, no hesitancy Musculoskeletal: No joint pain, No Myalgias Skin: No Skin Lesions, No rash Neuro: No Weakness, No Numbness, No Headache Psych: No Anxiety/Panic, No Depression Heme/Lymph: No Bruising, No Lymphadenopathy Endocrine: No Polyuria, No Polydipsia Yes all other systems are reviewed and are negative [facility] Past Medical History Attestation statement: The following information was validated with the patient. Source: old records reviewed Medical History Abdominal wall mass Asthma History of colitis Surgical History History of colonoscopy Hx of section Hx of endoscopy Hx of hysterectomy Family History Family History Father No problems noted. Mother No problems noted. 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 Oriented X3. Mild distress. Eyes: Pupils equal, round and reactive to light. ENT: Pharynx normal. Neck: Normal inspection. Neck supple. CVS: Normal heart rate and rhythm. Pulses normal. Respiratory: No respiratory distress. Breath sounds normal. Abdomen: Soft and nontender. Left CVA tenderness. Skin: Skin warm and dry. Normal skin color. Normal skin turgor. Extremities: No lower extremity edema. Moves all extremities against resistance. Neuro: No motor deficit. No sensory deficit. Cranial nerves 2-12 intact. Course Course Course Narrative: 41-year-old female presents with flank pain, nausea, vomiting, and urinary symptoms with a history of pyelonephritis. Physical exam is unremarkable with the exception of left-sided CVA tenderness. Labs are unremarkable. Patient does have history of [place] we will order kidney stone, hydro, pyelo. 23:27 CT scan shows multiple bilateral nonobstructing kidney stones. No indication of hydro pyelo. Will prescribe Flomax, Motrin, and have patient follow-up with Urology as an outpatient. Patient verbalized understanding of and agrees to plan of care discharge home. Verbalized understanding of signs and symptoms indicating need for emergent intervention. MDM - Female Genitourinary MDM Narrative Medical decision making narrative: Kidney stone, pyelo, hydro Differential Diagnosis Differential diagnosis: Likely urinary tract infection, cervicitis and cystitis Medical Records Attestation: I reviewed the patient's medical records. Lab Data Attestation: I reviewed the patient's lab results. Result diagrams: 01/11/22 21:38 01/11/22 21:38 Labs: Lab Results 01/11/22 01/11/22 01/11/22 Range/Units 21:37 21:38 21:38 WBC 8.1 (4.8-10.8) X10*3/uL RBC 4.93 (4.20-5.50) X10*6/uL Hgb 14.9 (12.0-16.0) g/dl Hct 44.3 (37.0-47.0) % MCV 89.9 (80.0-98.0) fL MCH 30.2 (27.0-33.0) pg MCHC 33.6 (31.0-35.0) g/dl RDW 12.7 (11.0-16.0) % Plt Count 313 (160-400) X10*3/uL MPV 9.4 (9.4-12.3) fL Immature Gran % (Auto) 0.2 (0.0-0.4) % Neut % (Auto) 59.9 (45-73) % Lymph % (Auto) 31.2 (20-40) % [place] % (Auto) 7.6 (2-11) % Eos % (Auto) 0.7 (0-4) % Baso % (Auto) 0.4 (0-2) % Lymph # (Auto) 2.5 (1.2-4.9) X10*3/uL [place] # (Auto) 0.6 (0.1-1.2) X10*3/uL Eos # (Auto) 0.1 (0.0-0.4) X10*3/uL Baso # (Auto) 0.0 (0.0-0.2) X10*3/uL Abs Immat Gran (auto) 0.02 (0.00-0.03) X10*3/uL Absolute Neuts (auto) 4.9 (2.0-8.3) x10*3/uL Absolute Nucleated RBC 0.000 (0.0-0.012) X10*3/uL Nucleated RBC % (auto) 0.0 (0.0-0.2) /100WBC Sodium 139 (135-145) mmol/L Potassium 3.9 (3.3-5.1) mmol/L Chloride 105 (96-108) mmol/L Carbon Dioxide 27 (22-29) mmol/L Anion Gap 11 L (12-20) BUN 10 (9-16) mg/dL Creatinine 0.75 (0.5-1.4) mg/dL Estim Creat Clear Calc 98.0 Estimated GFR > 60 Random Glucose 89 (60-115) mg/dL Calcium 9.7 (8.4-10.2) mg/dL Total Bilirubin 0.4 (0.0-1.0) mg/dL AST 26 (5-31) U/L ALT 27 (0-31) U/L Alkaline Phosphatase 83 (39-117) U/L Total Protein 7.6 (6.5-8.0) g/dL Albumin 4.3 (3.5-5.0) g/dL Urine Color YELLOW Urine Appearance CLEAR Urine pH 6.0 (5.0-8.0) Ur Specific [place] 1.025 (1.005-1.025) Urine Protein NEG (NEG-TRACE) MG/DL Urine Glucose (UA) NEG (NEG) MG/DL Urine Ketones NEG (NEG) MG/DL Urine Blood TRACE (NEG) Urine Nitrite NEG (NEG) Ur Leukocyte Esterase NEG (NEG) Urine RBC 0-2 (0) /HPF Urine WBC 0-2 (0-4) /HPF Ur Squamous Epith Cells 2+ /LPF Urine Bacteria TRACE /LPF Urine Mucus 1+ /LPF Imaging Data CT abdomen pelvis: Attestation: I personally reviewed and interpreted this imaging study as follows: Radiologist's impression: FINDINGS: LUNG BASES: The visualized lung bases are unremarkable.? LIVER, GALLBLADDER, AND BILIARY TREE: The liver is normal in size, shape, and attenuation. No focal hepatic lesion or biliary ductal dilatation is present. The gallbladder is unremarkable with no evidence of radiopaque gallstones, gallbladder wall thickening, or obvious pericholecystic inflammatory changes.? PANCREAS: Unremarkable.? SPLEEN: Unremarkable.? ADRENAL GLANDS: There is a stable 1.4 cm fat density right adrenal benign adenoma. The left adrenal gland appears normal.? KIDNEYS AND URETERS: The kidneys are normal in size, shape, and attenuation. At least 6 tiny punctate nonobstructing calculi are present on the left kidney with with about 7 similar tiny punctate calculi noted on the right. The largest calculus is on the left measuring 3 mm (4:215). Appearances are similar to prior. No hydronephrosis, hydroureter, or ureteral calculi seen. No perinephric stranding. ? BLADDER: Unremarkable.? GASTROINTESTINAL TRACT: The small and large bowel are unremarkable. The appendix is unremarkable.? ABDOMINAL WALL: No significant hernia is appreciated.? LYMPH NODES: Normal. VASCULAR: Unremarkable. PELVIC VISCERA: Unremarkable.? OSSEOUS STRUCTURES: Unremarkable.? CT/CT abdomen pelvis wo con IMPRESSION: Bilateral nonobstructing renal calculi. No other significant abnormality is seen. ? Fleischner guidelines were followed. Discharge Plan Discharge Clinical Impression: Kidney stone on left side, Kidney stone on right side Patient Disposition: Home, Self-Care Instructions: Kidney Stones (ED) Additional Instructions: You were evaluated for abdominal pain. CT scan of abdomen pelvis indicates multiple bilateral kidney stones that are nonobstructing. Please follow-up with Urology. I referred you to Dr. Lam. Please call and request appointment for evaluation Take Flomax 0.4 mg daily. Take Motrin 600 mg every 6 hours as needed for pain management. Drink plenty of fluids. Thank you for choosing this emergency department for evaluation. Please follow-up with primary care physician as needed. Return to the emergency depart ment for any new, concerning, or worsening symptoms. Prescriptions: New tamsulosin [Flomax] 0.4 mg capsule 0.4 mg PO DAILY 21 Days Qty: 21 0RF ibuprofen 600 mg tablet 600 mg PO Q6H PRN (Reason: pain) Qty: 30 0RF No Action pantoprazole 40 mg tablet,delayed release (DR/EC) 40 mg PO DAILY Qty: 90 1RF lorazepam 0.5 mg Tablet 0.5 mg PO QAM mometasone [Nasonex] 50 mcg/actuation [place],Non-Aerosol 2 spray INTRANASAL DAILY loratadine 10 mg Tablet 10 mg PO DAILY Atrovent HFA 17 mcg/actuation Hfa Aerosol Inhaler 2 puff INHALATION QID hydrocortisone [Anusol-HC] 2.5 % cream with perineal applicator 1 appl [place] BID-QID PRN (Reason: hemorrhoids) Qty: 30 0RF ondansetron HCl [Zofran] 4 mg tablet 4 mg PO Q8H PRN (Reason: nausea and vomiting) Qty: 30 1RF ibuprofen 800 mg tablet 800 mg PO Q8H ondansetron 4 mg tablet,disintegrating 4 mg PO Q8H Qty: 60 0RF gabapentin 100 mg capsule 100 mg PO BEDTIME Qty: 60 2RF bisacodyl [Dulcolax (bisacodyl)] 5 mg tablet,delayed release (DR/EC) 10 mg PO ONCE 1 Days Qty: 2 0RF Rx Instructions: Take 2 tablets at 12:00pm the day before your procedure, bowel prep polyethylene glycol 3350 [Miralax] 17 gram/dose powder 238 g PO ONCE 1 Days Qty: 238 0RF Rx Instructions: Take as directed by mouth, bowel prep celecoxib [Celebrex] 200 mg capsule 200 mg PO BID 30 Days Qty: 60 0RF Referrals: Anshu Lam MD [Physician] - (Bilateral kidney stones) Stand Alone Forms: Work/School Release
[2022-01-11 21:44] LABS: MANUAL DIFF FLAG NO
[2022-01-11 21:46] LABS: Basophils Percent Auto 0.4 % (0-2); Eosinophils Absolute Auto 0.1 X10*3/uL (0.0-0.4); Eosinophils Percent Auto 0.7 % (0-4); Hematocrit 44.3 % (37.0-47.0); Hemoglobin 14.9 g/dl (12.0-16.0); Imm Gran Abs Auto 0.02 X10*3/uL (0.00-0.03); Imm Gran Pct Auto 0.2 % (0.0-0.4); Lymphocytes Absolute Auto 2.5 X10*3/uL (1.2-4.9); Lymphocytes Percent Auto 31.2 % (20-40); Mean Corpuscular HGB Conc 33.6 g/dl (31.0-35.0); Mean Corpuscular Hemoglobin 30.2 pg (27.0-33.0); Mean Corpuscular Volume 89.9 fL (80.0-98.0); Mean Platelet Volume 9.4 fL (9.4-12.3); Monocytes Absolute Auto 0.6 X10*3/uL (0.1-1.2); Monocytes Percent Auto 7.6 % (2-11); Neutrophils Absolute Auto 4.9 x10*3/uL (2.0-8.3); Neutrophils Percent Auto 59.9 % (45-73); Platelet Count 313 X10*3/uL (160-400); Red Blood Count 4.93 X10*6/uL (4.20-5.50); Red Cell Distribution Width 12.7 % (11.0-16.0); White Blood Count 8.1 X10*3/uL (4.8-10.8)
[2022-01-11 21:46] LABS: Appearance Urine CLEAR; Color Urine YELLOW; Glucose Urine UA NEG (NEG); Leukocyte Esterase Urine NEG (NEG); Nitrite Urine NEG (NEG); Specific Gravity - Urine 1.025 (1.005-1.025); UACC Culture Trigger NO; Urine Blood TRACE (NEG); Urine Ketones NEG (NEG); Urine Protein NEG (NEG-TRACE)
[2022-01-11 21:59] LABS: Squamous Epithelial Cell Urine 2+ /LPF
[2022-01-11 22:00] LABS: Bacteria Urine TRACE /LPF; Mucus Urine 1+ /LPF; RBC Urine 0-2 /HPF (0); WBC Urine 0-2 /HPF (0-4)
[2022-01-11 22:04] LABS: Alanine Aminotransferase 27 U/L (0-31); Albumin Level 4.3 g/dL (3.5-5.0); Alkaline Phosphatase 83 U/L (39-117); Anion Gap 11 (12-20); Aspartate Amino Transferase 26 U/L (5-31); Bilirubin Total 0.4 mg/dL (0.0-1.0); Blood Urea Nitrogen 10 mg/dL (9-16); Calcium 9.7 mg/dL (8.4-10.2); Carbon Dioxide 27 mmol/L (22-29); Chloride 105 mmol/L (96-108); Estimated Glomerular Filt Rate > 60; Glucose Random 89 mg/dL (60-115); Potassium 3.9 mmol/L (3.3-5.1); Sodium 139 mmol/L (135-145); Total Protein 7.6 g/dL (6.5-8.0)
[2022-01-11] MEDS: 0.9 % Sodium Chloride 1,000 ML 999 ML IVCONT (22:58)
[2022-01-11] MEDS: ondansetron HCL 4 MG/2 ML VIAL IVPUSH (22:58)
[2022-01-11] MEDS: Ketorolac Tromethamine 30 MG/ML VIAL IVPUSH (22:58)
[2022-01-11 23:41] VITALS: BP 102/53; PULSE 66; RESP 16; TEMP 36.9; O2SAT 98
[2022-01-11] MEDS: Tamsulosin HCL 0.4 MG CAPSULE PO (23:44)
== END 2022-01-11 23:50 | disposition home or self-care (01) ==
PROVIDERS: Emergency Provider Emergency Medicine; PCP Student in an Organized Health Care Education/Training Program
DX: N20.0 Calculus of kidney (principal); R39.15 Urgency of urination; J45.909 Unspecified asthma, uncomplicated
CPT/HCPCS: 36415; 74176; 80053; 81001; 85025; 96361; 96374; 96375; 99284; J1885; J2405

== ENCOUNTER 2022-01-23 07:25 | Emergency (ER) | payer MEDICAID, SELFPAY ==
--- NOTE | ~2022-01-23 | CT_ITS ---
EXAMINATION: CT ABDOMEN AND PELVIS WITHOUT CONTRAST CLINICAL INFORMATION: Right-sided abdominal pain COMPARISON: None TECHNIQUE: Multidetector volumetric imaging was performed from the superior aspect of the liver through the pubic symphysis. Sagittal and coronal reformatted images were obtained on the technologist's workstation. This CT examination was performed using dose optimization techniques as appropriate, variously including the following: *Automated exposure control *Adjustment of mA and/or kV according to patient size (this includes techniques or standardized protocols for targeted exams where dose is matched to indication/reason for exam; i.e. extremities or head) *Use of iterative reconstruction technique DLP: 612 mGy-cm FINDINGS: LUNG BASES: The visualized lung bases are unremarkable. LIVER, GALLBLADDER, AND BILIARY TREE: The liver is normal in size, shape, and attenuation. No focal hepatic lesion or biliary ductal dilatation is present. The gallbladder is unremarkable with no evidence of radiopaque gallstones, gallbladder wall thickening, or obvious pericholecystic inflammatory changes. PANCREAS: Unremarkable. SPLEEN: Unremarkable. ADRENAL GLANDS: There is a 1. 101.1 cm right adrenal round lesion measuring -10 Hounsfield units, a benign lesion. In the left adrenal gland is unremarkable. KIDNEYS AND URETERS: The kidneys are normal in size, shape, and attenuation. There is a punctate 2 mm radiopaque calculi mid and lower pole pole left kidney and midpole right kidney without caliectasis or hydronephrosis. There is left lower pole peripelvic cyst. BLADDER: Unremarkable bladder. No radiopaque calculi. No wall thickening. GASTROINTESTINAL TRACT: Scattered stool and gas is seen throughout the colon without distention. Appendix is normal caliber. Terminal ileum and the small bowel loops are normal caliber. ABDOMINAL WALL: No significant hernia is appreciated. LYMPH NODES: Normal. VASCULAR: Unremarkable. PELVIC VISCERA: The uterus is anteverted and appears unremarkable. There is no free air or free fluid. OSSEOUS STRUCTURES: Unremarkable. CT/CT abdomen pelvis wo con IMPRESSION: No acute intra-abdominal process seen. Mild constipation without obstruction. Normal appendix. Bilateral radiopaque renal calculi without caliectasis or hydronephrosis. Left peripelvic renal cysts. Fleischner guidelines were followed.
--- NOTE | ~2022-01-23 | US_ITS ---
EXAMINATION: US ABDOMEN COMPLETE CLINICAL INFORMATION: Right upper quadrant pain. COMPARISON: None TECHNIQUE: Real-time imaging of the abdominal viscera. FINDINGS: PANCREAS: Normal. ABDOMINAL AORTA: The proximal, mid, and distal segments are normal in caliber. INFERIOR VENA CAVA: Visualized portions are normal. LIVER: Normal. The liver is normal in size. The liver contour is normal. Parenchymal echogenicity is normal. No focal hepatic lesion. There is no intrahepatic biliary duct dilatation seen. GALLBLADDER: Normal. The gallbladder is physiologically distended without evidence of stones, sludge, polyps, wall thickening or pericholecystic fluid. COMMON BILE DUCT: Normal in caliber measuring 0.3 cm in diameter. RIGHT KIDNEY: Normal. No hydronephrosis. No renal calculi or focal parenchymal lesions. The kidney measures 11.8 cm in maximum dimension. LEFT KIDNEY: No hydronephrosis. No renal calculi or focal parenchymal lesions. The kidney measures 11.6 cm in maximum dimension. There are 2 anechoic cysts in the lower pole measuring 1.6 x 1.2 x 1.8 cm and 1.6 x 1.3 x 1.4 cm. There are scattered punctate foci with the largest foci in the upper pole measuring 0.3 x 0.3 x 0.3 cm. SPLEEN: Normal. The spleen measures 10.2 cm in maximum dimension. FREE FLUID: None. US/US abdomen complete IMPRESSION: Two left renal cysts and scattered punctate echogenic foci but no caliectasis or hydronephrosis in left kidney. The rest of the abdominal ultrasound is unremarkable.
[2022-01-23 07:50] VITALS: BP 109/80; PULSE 80; RESP 16; TEMP 36.8; O2SAT 99; BMI 31.1
--- NOTE | 2022-01-23 07:56 | ED_ITS ---
HPI - Abdominal Pain General Chief Complaint: Abdominal Pain Stated Complaint: abd pain Time Seen by Provider: 01/23/22 07:33 Source: patient Mode of arrival: ambulatory Limitations: no limitations History of Present Illness HPI narrative: This is 41 years old female presented to the emergency department with a chief complaint of abdominal pain localized in the right upper quadrant she has complained of nausea, no vomiting. She has history of duodenitis. MD elicited complaint: abdominal pain Pertinent past history: none Onset (ago): day(s) (1) Pain Consistency: constant Location: RUQ Severity: mild Quality: cramping Radiation: none Migration to: no migration Exacerbating factors: nothing Relieving factors: nothing Associated symptoms: nausea Related Data Home Medications Medication Instructions Recorded Confirmed ipratropium bromide 17 2 puff inhalation QID 04/23/20 05/05/21 mcg/actuation HFA aerosol inhaler (Atrovent HFA) loratadine 10 mg tablet 10 mg PO DAILY 04/23/20 05/05/21 lorazepam 0.5 mg tablet 0.5 mg PO QAM 04/23/20 05/05/21 mometasone 50 mcg/actuation nasal 2 spray intranasal DAILY 04/23/20 05/05/21 spray (Nasonex) ibuprofen 800 mg tablet 800 mg PO Q8H 10/08/20 05/05/21 Previous Rx's Medication Instructions Recorded hydrocortisone 2.5 % topical cream 1 appl CO BID-QID PRN hemorrhoids 07/03/20 with perineal applicator #30 grams (Anusol-HC) ondansetron HCl 4 mg tablet 4 mg PO Q8H PRN nausea and 07/03/20 (Zofran) vomiting #30 tabs bisacodyl 5 mg tablet,delayed 10 mg PO ONCE Bowel Preparation 1 07/23/20 release (Dulcolax (bisacodyl)) day #2 tabs polyethylene glycol 3350 17 238 g PO ONCE 1 day #238 grams 07/23/20 gram/dose oral powder (Miralax) gabapentin 100 mg capsule 100 mg PO BEDTIME #60 caps 03/26/21 ondansetron 4 mg disintegrating 4 mg PO Q8H #60 tabs 03/26/21 tablet pantoprazole 40 mg tablet,delayed 40 mg PO DAILY #90 tabs 05/19/21 release celecoxib 200 mg capsule (Celebrex) 200 mg PO BID shoulder impingement 09/08/21 30 days #60 caps ibuprofen 600 mg tablet 600 mg PO Q6H PRN pain #30 tabs 01/11/22 tamsulosin 0.4 mg capsule (Flomax) 0.4 mg PO DAILY 21 days #21 caps 01/11/22 Allergies Allergy/AdvReac Type Severity Reaction Status Date / Time almond Allergy Severe ANAPHYLAXIS Verified 05/07/21 13:12 soy [SOY] Allergy Severe ANAPHYLAXIS Verified 05/07/21 13:12 Review of Systems Constitutional: Reports no additional constitutional complaints Reports system reviewed and no additional complaints, except as documented Gastrointestinal: Reports abdominal pain, Denies diarrhea, Reports nausea, Denie s vomiting and Denies hematemesis PMFSH Past Medical History Medical History Abdominal wall mass Asthma Bleeding hemorrhoids History of colitis Surgical History History of colonoscopy Hx of section Hx of endoscopy Hx of hysterectomy Family History Family History Father No problems noted. Mother No problems noted. 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 Physical Exam ED Vital Signs: Vital Signs - 24 hr 01/23/22 07:50 01/23/22 08:02 Temperature 98.2 F Pulse Rate 80 79 Respiratory Rate 16 12 Blood Pressure 109/80 127/66 Pulse Oximetry 99 95 Oxygen Delivery Method Room Air BMI result Body Mass Index 31.1 Const General: cooperative Nutritional Appearance: average body habitus HENMT Head: Yes normal to inspection General nose exam: Normal external nose present Face and sinus: Yes normal facial exam Neck Neck: Yes normal visual inspection and Yes full ROM Chest Chest palpation & inspection: normal inspection of the chest Resp Effort & Inspection: normal respiratory effort Auscultation: clear to auscultation bilaterally Cardio Jugular venous distension: no JVD Rate: regular rate Rhythm: regular rhythm GI Inspection: Yes normal to inspection Palpation (GI): Soft to palpation, not firm, nontender, no guarding and not rigid Auscultation: normal bowel sounds General: Yes no CVA tenderness Back/Spine/Pelvis Back: no CVA tenderness Skin General skin exam: no rashes or lesions noted, elasticity normal and turgor normal Rashes: no rashes Course Reevaluation(s) Reevaluation #1: She is feeling much better now, workup is essentially negative, CT scan shows in no bowel pathology, see a stone in the kidney but she has no ureteral lithiasis no hydronephrosis she has no hematuria; her pain is not due to renal stone. Time: 10:41 MDM - Abdominal Pain Lab Data Attestation: I reviewed the patient's lab results. Result diagrams: 01/23/22 08:01 01/23/22 08:01 Labs: Lab Results 01/23/22 01/23/22 01/23/22 Range/Units 08:01 08:01 08:47 WBC 7.7 (4.8-10.8) X10*3/uL RBC 4.65 (4.20-5.50) X10*6/uL Hgb 14.2 (12.0-16.0) g/dl Hct 42.2 (37.0-47.0) % MCV 90.8 (80.0-98.0) fL MCH 30.5 (27.0-33.0) pg MCHC 33.6 (31.0-35.0) g/dl RDW 12.4 (11.0-16.0) % Plt Count 272 (160-400) X10*3/uL MPV 9.5 (9.4-12.3) fL Immature Gran % (Auto) 0.1 (0.0-0.4) % Neut % (Auto) 59.2 (45-73) % Lymph % (Auto) 29.9 (20-40) % [place] % (Auto) 8.9 (2-11) % Eos % (Auto) 1.6 (0-4) % Baso % (Auto) 0.3 (0-2) % Lymph # (Auto) 2.3 (1.2-4.9) X10*3/uL [place] # (Auto) 0.7 (0.1-1.2) X10*3/uL Eos # (Auto) 0.1 (0.0-0.4) X10*3/uL Baso # (Auto) 0.0 (0.0-0.2) X10*3/uL Abs Immat Gran (auto) 0.01 (0.00-0.03) X10*3/uL Absolute Neuts (auto) 4.6 (2.0-8.3) x10*3/uL Absolute Nucleated RBC 0.000 (0.0-0.012) X10*3/uL Nucleated RBC % (auto) 0.0 (0.0-0.2) /100WBC Sodium 138 (135-145) mmol/L Potassium 5.2 H D (3.3-5.1) mmol/L Chloride 107 (96-108) mmol/L Carbon Dioxide 24 (22-29) mmol/L Anion Gap 12 (12-20) BUN 13 (9-16) mg/dL Creatinine 0.77 (0.5-1.4) mg/dL Estim Creat Clear Calc 93.3 Estimated GFR > 60 Random Glucose 110 (60-115) mg/dL Calcium 9.0 D (8.4-10.2) mg/dL Total Bilirubin 0.2 (0.0-1.0) mg/dL AST 25 (5-31) U/L ALT 29 (0-31) U/L Alkaline Phosphatase 81 (39-117) U/L Total Protein 7.4 (6.5-8.0) g/dL Albumin 4.1 (3.5-5.0) g/dL Lipase 23 (8-78) U/L Beta HCG, Quant mIU/mL Urine Color YELLOW Urine Appearance CLEAR Urine pH 7.0 (5.0-8.0) Ur Specific [place] 1.010 (1.005-1.025) Urine Protein NEG (NEG-TRACE) MG/DL Urine Glucose (UA) NEG (NEG) MG/DL Urine Ketones NEG (NEG) MG/DL Urine Blood NEG (NEG) Urine Nitrite NEG (NEG) Ur Leukocyte Esterase NEG (NEG) Urine RBC 0-2 (0) /HPF Urine WBC 0 (0-4) /HPF Ur Squamous Epith Cells 1+ /LPF Amorphous Sediment 3+ /LPF Urine Bacteria NONE /LPF Granular Casts 0-2 /LPF Urine Mucus TRACE /LPF Urine Test (NEGATIVE) 01/23/22 01/23/22 Range/Units 08:47 08:52 WBC (4.8-10.8) X10*3/uL RBC (4.20-5.50) X10*6/uL Hgb (12.0-16.0) g/dl Hct (37.0-47.0) % MCV (80.0-98.0) fL MCH (27.0-33.0) pg MCHC (31.0-35.0) g/dl RDW (11.0-16.0) % Plt Count (160-400) X10*3/uL MPV (9.4-12.3) fL Immature Gran % (Auto) (0.0-0.4) % Neut % (Auto) (45-73) % Lymph % (Auto) (20-40) % [place] % (Auto) (2-11) % Eos % (Auto) (0-4) % Baso % (Auto) (0-2) % Lymph # (Auto) (1.2-4.9) X10*3/uL [place] # (Auto) (0.1-1.2) X10*3/uL Eos # (Auto) (0.0-0.4) X10*3/uL Baso # (Auto) (0.0-0.2) X10*3/uL Abs Immat Gran (auto) (0.00-0.03) X10*3/uL Absolute Neuts (auto) (2.0-8.3) x10*3/uL Absolute Nucleated RBC (0.0-0.012) X10*3/uL Nucleated RBC % (auto) (0.0-0.2) /100WBC Sodium (135-145) mmol/L Potassium (3.3-5.1) mmol/L Chloride (96-108) mmol/L Carbon Dioxide (22-29) mmol/L Anion Gap (12-20) BUN (9-16) mg/dL Creatinine (0.5-1.4) mg/dL Estim Creat Clear Calc Estimated GFR Random Glucose (60-115) mg/dL Calcium (8.4-10.2) mg/dL Total Bilirubin (0.0-1.0) mg/dL AST (5-31) U/L ALT (0-31) U/L Alkaline Phosphatase (39-117) U/L Total Protein (6.5-8.0) g/dL Albumin (3.5-5.0) g/dL Lipase (8-78) U/L Beta HCG, Quant < 2 mIU/mL Urine Color Urine Appearance Urine pH (5.0-8.0) Ur Specific [place] (1.005-1.025) Urine Protein (NEG-TRACE) MG/DL Urine Glucose (UA) (NEG) MG/DL Urine Ketones (NEG) MG/DL Urine Blood (NEG) Urine Nitrite (NEG) Ur Leukocyte Esterase (NEG) Urine RBC (0) /HPF Urine WBC (0-4) /HPF Ur Squamous Epith Cells /LPF Amorphous Sediment /LPF Urine Bacteria /LPF Granular Casts /LPF Urine Mucus /LPF Urine Test NEGATIVE (NEGATIVE) Imaging Data CT scan - abdomen: Radiologist's impression: EXAMINATION: XR LUMBOSACRAL SPINE CLINICAL INFORMATION: Low back pain COMPARISON: None TECHNIQUE: Three views of the lumbosacral spine. FINDINGS: There is normal lumbar lordosis. The vertebral heights and alignment is normal. The disc height is preserved. The SI joints are symmetrical. No visible acute fracture, lytic or sclerotic process seen. There is moderate to large amount of stool in the colon. XR/XR lumbar spine 2-3V IMPRESSION: Unremarkable lumbar spine exam. ? Large amount of stool in the colon Dictated By: Kai Clark MD Signed By: <Electronically signed by Kai Clark MD in [place]> 01/23/22920 DD/ 09 Discharge Plan Discharge Clinical Impression: Abdominal pain Patient Disposition: Home, Self-Care Instructions: Abdominal Pain (ED) Additional Instructions: Stable liquid diet for 24 hour, cold your gastroenterology tomorrow for follow- up Prescriptions: No Action pantoprazole 40 mg tablet,delayed release (DR/EC) 40 mg PO DAILY Qty: 90 1RF lorazepam 0.5 mg Tablet 0.5 mg PO QAM mometasone [Nasonex] 50 mcg/actuation Ralph,Non-Aerosol 2 spray INTRANASAL DAILY loratadine 10 mg Tablet 10 mg PO DAILY Atrovent HFA 17 mcg/actuation Hfa Aerosol Inhaler 2 puff INHALATION QID tamsulosin [Flomax] 0.4 mg capsule 0.4 mg PO DAILY 21 Days Qty: 21 0RF ibuprofen 600 mg tablet 600 mg PO Q6H PRN (Reason: pain) Qty: 30 0RF hydrocortisone [Anusol-HC] 2.5 % cream with perineal applicator 1 appl CO BID-QID PRN (Reason: hemorrhoids) Qty: 30 0RF ondansetron HCl [Zofran] 4 mg tablet 4 mg PO Q8H PRN (Reason: nausea and vomiting) Qty: 30 1RF ibuprofen 800 mg tablet 800 mg PO Q8H ondansetron 4 mg tablet,disintegrating 4 mg PO Q8H Qty: 60 0RF gabapentin 100 mg capsule 100 mg PO BEDTIME Qty: 60 2RF bisacodyl [Dulcolax (bisacodyl)] 5 mg tablet,delayed release (DR/EC) 10 mg PO ONCE 1 Days Qty: 2 0RF Rx Instructions: Take 2 tablets at 12:00pm the day before your procedure, bowel prep polyethylene glycol 3350 [Miralax] 17 gram/dose powder 238 g PO ONCE 1 Days Qty: 238 0RF Rx Instructions: Take as directed by mouth, bowel prep celecoxib [Celebrex] 200 mg capsule 200 mg PO BID 30 Days Qty: 60 0RF Referrals: Nida Hsieh MD [Physician] - 2 days
[2022-01-23 08:02] VITALS: BP 127/66; PULSE 79; RESP 12; O2SAT 95
[2022-01-23 08:05] LABS: MANUAL DIFF FLAG NO
[2022-01-23 08:06] LABS: Basophils Percent Auto 0.3 % (0-2); Eosinophils Absolute Auto 0.1 X10*3/uL (0.0-0.4); Eosinophils Percent Auto 1.6 % (0-4); Hematocrit 42.2 % (37.0-47.0); Hemoglobin 14.2 g/dl (12.0-16.0); Imm Gran Abs Auto 0.01 X10*3/uL (0.00-0.03); Imm Gran Pct Auto 0.1 % (0.0-0.4); Lymphocytes Absolute Auto 2.3 X10*3/uL (1.2-4.9); Lymphocytes Percent Auto 29.9 % (20-40); Mean Corpuscular HGB Conc 33.6 g/dl (31.0-35.0); Mean Corpuscular Hemoglobin 30.5 pg (27.0-33.0); Mean Corpuscular Volume 90.8 fL (80.0-98.0); Mean Platelet Volume 9.5 fL (9.4-12.3); Monocytes Absolute Auto 0.7 X10*3/uL (0.1-1.2); Monocytes Percent Auto 8.9 % (2-11); Neutrophils Absolute Auto 4.6 x10*3/uL (2.0-8.3); Neutrophils Percent Auto 59.2 % (45-73); Platelet Count 272 X10*3/uL (160-400); Red Blood Count 4.65 X10*6/uL (4.20-5.50); Red Cell Distribution Width 12.4 % (11.0-16.0); White Blood Count 7.7 X10*3/uL (4.8-10.8)
[2022-01-23 08:31] LABS: Alanine Aminotransferase 29 U/L (0-31); Albumin Level 4.1 g/dL (3.5-5.0); Alkaline Phosphatase 81 U/L (39-117); Anion Gap 12 (12-20); Aspartate Amino Transferase 25 U/L (5-31); Bilirubin Total 0.2 mg/dL (0.0-1.0); Blood Urea Nitrogen 13 mg/dL (9-16); Carbon Dioxide 24 mmol/L (22-29); Chloride 107 mmol/L (96-108); Creatinine Clr Calc Pharmacy 93.3; Estimated Glomerular Filt Rate > 60; Glucose Random 110 mg/dL (60-115); Lipase 23 U/L (8-78); Potassium 5.2 mmol/L (3.3-5.1); Sodium 138 mmol/L (135-145); Total Protein 7.4 g/dL (6.5-8.0)
[2022-01-23] MEDS: ondansetron HCL 4 MG/2 ML VIAL IVPUSH (08:59)
[2022-01-23] MEDS: Morphine Sulfate 4 MG/ML CARTRIDGE IVPUSH (09:00)
[2022-01-23 09:02] LABS: Appearance Urine CLEAR; Color Urine YELLOW; Glucose Urine UA NEG (NEG); Leukocyte Esterase Urine NEG (NEG); Nitrite Urine NEG (NEG); Urine Blood NEG (NEG); Urine Ketones NEG (NEG); Urine Protein NEG (NEG-TRACE)
[2022-01-23 09:04] LABS: UPreg QC Valid YES; Urine Pregnancy NEGATIVE (NEGATIVE)
[2022-01-23 09:23] LABS: Amorphous Sediment Urine 3+ /LPF; Granular Casts Urine 0-2 /LPF; Mucus Urine TRACE /LPF; RBC Urine 0-2 /HPF (0); Squamous Epithelial Cell Urine 1+ /LPF; WBC Urine 0 /HPF (0-4)
[2022-01-23 09:41] LABS: HCG Quantitative < 2 mIU/mL
[2022-01-23 10:47] VITALS: BP 101/62; PULSE 62; O2SAT 100
== END 2022-01-23 11:08 | disposition home or self-care (01) ==
PROVIDERS: Emergency Provider Emergency Medicine; PCP Student in an Organized Health Care Education/Training Program
DX: R10.11 Right upper quadrant pain (principal)
CPT/HCPCS: 36415; 74176; 76700; 80053; 81001; 81025; 83690; 84702; 85025; 96374; 96375; 99283; 99284; J2270; J2405

== ENCOUNTER → 2022-03-03 09:20 | Outpatient (BNVA) | payer MEDICAID, SELFPAY | PROVIDERS: PCP Student in an Organized Health Care Education/Training Program | DX: N20.0 Calculus of kidney (principal) | CPT/HCPCS: 99202 ==

== ENCOUNTER 2022-04-20 16:02 | Outpatient (REF) | payer MEDICAID, SELFPAY ==
--- NOTE | ~2022-04-20 | US_ITS ---
EXAMINATION: US RETROPERITONEAL LIMITED (RENAL ONLY) CLINICAL INFORMATION: Calculus of kidney. COMPARISON: CT abdomen and pelvis and ultrasound abdomen complete 01/23/2022. TECHNIQUE: Real-time imaging of the kidneys. FINDINGS: RIGHT KIDNEY: 11.4 x 5.1 x 5.3 cm (SAG x AP x TRV). The kidney is normal in size, contour, and echogenicity. Renal cortical thickness is normal. No calculi or focal parenchymal lesions. No hydronephrosis. LEFT KIDNEY: 11.6 x 5.7 x 4.8 cm (SAG x AP x TRV). The kidney is normal in size, contour, and echogenicity. Renal cortical thickness is normal. No renal calculi or hydronephrosis. There is anechoic cyst in the lower pole measuring 1.6 x 1.2 x 1.8 cm and medially lower pole measuring 1.2 x 1.3 x 1.4 cm. There are echogenic foci lower pole measuring 0.4 x 0.3 x 0.4 cm without caliectasis US/US renal BI IMPRESSION: 2 lower pole left renal simple cysts. Small echogenic foci in the lower pole measuring 0.4 x 0.3 x 0.4 cm.
== END 2022-04-20 16:03 | disposition home or self-care (01) ==
LOC: HO.US 16:02
DX: N20.0 Calculus of kidney (principal)
CPT/HCPCS: 76775

== ENCOUNTER 2022-08-30 08:32 | Outpatient (REF) | payer MEDICAID, SELFPAY ==
--- NOTE | ~2022-08-30 | XR_ITS ---
EXAMINATION: XR KNEE, RIGHT XR KNEE, BILATERAL CLINICAL INFORMATION: Knee pain. COMPARISON: Standing knees 09/08/2021. TECHNIQUE: Single standing view of both knees was obtained along with 2 additional views right knee. FINDINGS: There is mild narrowing of the medial compartments which appears slightly more prominent on the current study than it did on last year's exam. No chondrocalcinosis. No right knee joint effusion. Unremarkable sunrise view. XR/XR knee RT 2V IMPRESSION: Mild narrowing of the medial compartments.
--- NOTE | ~2022-08-30 | XR_ITS ---
EXAMINATION: XR KNEE, RIGHT XR KNEE, BILATERAL CLINICAL INFORMATION: Knee pain. COMPARISON: Standing knees 09/08/2021. TECHNIQUE: Single standing view of both knees was obtained along with 2 additional views right knee. FINDINGS: There is mild narrowing of the medial compartments which appears slightly more prominent on the current study than it did on last year's exam. No chondrocalcinosis. No right knee joint effusion. Unremarkable sunrise view. XR/XR knee standing BI IMPRESSION: Mild narrowing of the medial compartments.
== END 2022-08-30 08:33 | disposition home or self-care (01) ==
LOC: HO.HOSX 08:32
PROVIDERS: Visit Provider Physician Assistant
DX: M23.91 Unspecified internal derangement of right knee (principal)
CPT/HCPCS: 73560; 73565; 99212

== ENCOUNTER → 2022-12-09 09:18 | Outpatient (BNVA) | payer MEDICAID, SELFPAY | PROVIDERS: PCP Family Medicine; Visit Provider Student in an Organized Health Care Education/Training Program | DX: M25.541 Pain in joints of right hand (principal); G56.03 Carpal tunnel syndrome, bilateral upper limbs | CPT/HCPCS: 99212 ==

== ENCOUNTER 2022-12-29 18:10 | Emergency (ER) | payer MEDICAID, SELFPAY ==
[2022-12-29 18:26] VITALS: BP 121/67; PULSE 86; RESP 20; TEMP 36.6; O2SAT 98; BMI 31.9
[2022-12-29 20:06] VITALS: BP 112/82; PULSE 76; RESP 18; TEMP 36.9; O2SAT 99
--- NOTE | 2022-12-29 21:56 | ED.BACK ---
HPI - Back Pain/Injury General Chief Complaint: Back Pain/Injury Stated Complaint: lower back pain going to private Time Seen by Provider: 12/29/22 21:18 Source: patient Mode of arrival: ambulatory Limitations: no limitations History of Present Illness HPI Narrative: 42-year-old female who presents emergency department for evaluation of left lower back pain with pain radiating to her left thigh x1 week. Patient states the pain is constant. The pain is relieved by rest and is worse with movement. She states the pain is a constant, sharp, shock-like pain which is 8/10 at its worst. The patient has been taking naproxen and Tylenol without any relief for pain. She denies any back injury. Patient does have a history kidney stones but she states the pain is different than her kidney stone pain. She denied any numbness or weakness in her lower extremities. She denied loss of bowel or bladder control. She denied fever, chills, injection drug use. Related Data Home Medications Medication Instructions Recorded Confirmed ipratropium bromide 17 2 puff inhalation QID 04/23/20 05/05/21 mcg/actuation HFA aerosol inhaler (Atrovent HFA) loratadine 10 mg tablet 10 mg PO DAILY 04/23/20 05/05/21 mometasone 50 mcg/actuation nasal 2 spray intranasal DAILY 04/23/20 05/05/21 spray (Nasonex) albuterol sulfate 90 mcg/actuation 2 puff inhalation Q4H PRN wheezing 12/09/22 aerosol inhaler (Ventolin HFA) cetirizine 10 mg tablet 10 mg PO QAM 12/09/22 epinephrine 0.3 mg/0.3 mL IM 12/09/22 injection, auto-injector lorazepam 0.5 mg tablet 0.5 mg PO QAM PRN 12/09/22 omeprazole 20 mg capsule,delayed 20 mg PO QAM 12/09/22 release polyethylene glycol 3350 17 238 g PO DAILY PRN 12/09/22 gram/dose oral powder (Miralax) Previous Rx's Medication Instructions Recorded ondansetron 4 mg disintegrating 4 mg PO Q8H #60 tabs 03/26/21 tablet pantoprazole 40 mg tablet,delayed 40 mg PO DAILY #90 tabs 05/19/21 release tamsulosin 0.4 mg capsule (Flomax) 0.4 mg PO DAILY 21 days #21 caps 01/11/22 wrist splint #2 ea 12/09/22 cyclobenzaprine 10 mg tablet 10 mg PO TID PRN pain, muscle 12/29/22 spasm #15 tabs morphine 15 mg immediate release 15 mg PO Q4-6H PRN pain #14 tabs 12/29/22 tablet prednisone 20 mg tablet 60 mg PO DAILY 7 days #21 tabs 12/29/22 Allergies Allergy/AdvReac Type Severity Reaction Status Date / Time almond Allergy Severe ANAPHYLAXIS Verified 12/09/22 09:24 soy [SOY] Allergy Severe ANAPHYLAXIS Verified 12/09/22 09:24 Review of Systems Review of Systems: Yes all other systems are reviewed and are negative [facility] [place] Past Medical History [facility] [place] Narrative: Social history: She denies tobacco, alcohol and drug use. Medical History Abdominal wall mass Asthma Bleeding hemorrhoids Endometriosis in cutaneous scar History of colitis Migraine with aura and without status migrainosus, not intractable Mild carpal tunnel syndrome of right wrist Renal calculi Rotator cuff impingement syndrome of right shoulder Surgical History History of colonoscopy Hx of section Hx of endoscopy Hx of hysterectomy Family History Family History Father Diabetes Mother COPD (chronic obstructive pulmonary disease) Arthritis Maternal Grandfather Colon cancer Throat cancer Other Family history of autoimmune disorder Social History Social History Household Members: Children Alcohol intake: never Smoked in Last 30 Days: No Second Hand Smoke Exposure: No Use of substances other than those prescribed or required for medical reasons: No Advance Directives: No Advance Directives Information Provided: No Patient : No Current occupational status: employed 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 Physical Exam Vital Signs: Vital Signs: Last Vital Signs Temp 98.4 F 12/29/22 20:06 Pulse 76 12/29/22 20:06 Resp 18 12/29/22 20:06 BP 112/82 12/29/22 20:06 Pulse Ox 99 12/29/22 20:06 O2 Del Method Room Air 12/29/22 20:06 BMI result Body Mass Index 31.9 Const: General: cooperative and no acute distress Orientation/consciousness: oriented to person and oriented to place Limitations: no limitations HEENT: Head: Yes normal to inspection, Yes normocephalic and Yes atraumatic Ears: external ears normal General nose exam: Normal external nose present Face and sinus: Yes normal facial exam Mouth: Normal oral and palatal mucosa present Throat: Yes posterior oropharynx normal Eyes: General: appearance normal, both eyes and all related structures Pupils: Equal, round and reactive pupils present Neck: Neck: Yes normal visual inspection, Yes no lymphadenopathy, Yes trachea midline and Yes supple Chest: Chest palpation & inspection: normal inspection of the chest and normal palpation of entire chest wall Resp: Effort & Inspection: normal respiratory effort and able to speak in complete sentences Auscultation: clear to auscultation bilaterally Cardio: Rate: regular rate Rhythm: regular rhythm Heart sounds: S1 normal heart sound present, S2 normal heart sound present and no murmurs GI: Inspection: Yes normal to inspection Palpation (GI): Soft to palpation, nontender and no guarding Auscultation: normal bowel sounds Back/Spine/Pelvis: Other: No vertebral tenderness, patient does have tenderness palpation of the left paraspinal muscles in the lumbar sacral area with spasm of these muscles, negative straight leg raises bilaterally Skin: General skin exam: no rashes or lesions noted Neuro: General: oriented to person and oriented to place Cranial nerves: Yes CN's II-XII intact bilaterally and Yes Equal, round and reactive pupils present Cognition (Neuro): normal cognition Motor exam (neuro): 5/5 motor strength present throughout Extrem: General: Yes normal to inspection Psych: Appearance: grossly normal Speech and movement: Normal speech and movement present Affect: normal affect Attitude: cooperative Thought process: Normal thought process present Thought content: Normal thought content present Medical Decision Making Medical Decision Making MDM Narrative: 42-year-old female who presents emergency department for evaluation of left lower back pain times 1 week, pain is relieved by rest and worse with movement. Pain does radiate down her left leg. Patient's exam did reveal tenderness palpation of the left paraspinal muscles in lumbar sacral region with spasm of these muscles. She had negative straight leg raises bilaterally and a normal neurologic exam. The patient's presentation is consistent with lumbar strain with radiculopathy. Advised. The approximate. She started on prednisone 60 mg once a day for 7 days, she was advised to take Tylenol and for pain not relieved by these 2 medications she was prescribed morphine. She was given printed and verbal instructions and discharged home. Differential Diagnosis Differential diagnosis includes but is not limited to musculoskeletal strain, disc disease, degenerative joint disease, infectious process Admission/Observation Consideration of admission/observation: Escalation of care including admission/observation considered Discharge Plan Discharge Clinical Impression: Acute lumbar back pain, Acute left lumbar radiculopathy Patient Disposition: Home, Self-Care Instructions: Lumbar Radiculopathy (ED) Additional Instructions: Your symptoms in your physical examination are consistent with a strain of the muscles in her lower back causing inflammation around the nerves and pain in your left thigh. Take Flexeril (cyclobenzaprine) 10 mg pills, 1 pill every 6-8 hours as needed for pain or spasm. This medication will make you sleepy. Do not drive or work while taking this medication. Take prednisone 20 mg pills, 3 pills once a day for 7 days. While you are taking prednisone, do not take any NSAIDs (Motrin, Advil, ibuprofen, Aleve, naproxen).. Take Tylenol (acetaminophen) 2 pills every 6 hours as needed for pain. For pain not relieved by prednisone or Tylenol take morphine 15 mg pills, 1 pill every 4 hours as needed for pain. This medication will make you sleepy, do not drive or work while taking this medication. Morphine is a narcotic medication and can be addicting. If you are concerned about addiction you can ask the pharmacist for less pills or do not get this prescription filled. Follow-up with your doctor in 2 days. Please return to the emergency department if your symptoms get worse or if you develop any symptoms that are concerning to you. Please see work note Prescriptions: New cyclobenzaprine 10 mg tablet 10 mg PO TID PRN (Reason: pain, muscle spasm) Qty: 15 0RF prednisone 20 mg tablet 60 mg PO DAILY 7 Days Qty: 21 0RF morphine 15 mg tablet 15 mg PO Q4-6H PRN (Reason: pain) Qty: 14 0RF Rx Instructions: Patient may request partial fill; Partial Fill upon patient request. No Action pantoprazole 40 mg tablet,delayed release (DR/EC) 40 mg PO DAILY Qty: 90 1RF mometasone [Nasonex] 50 mcg/actuation Sprakers,Non-Aerosol 2 spray INTRANASAL DAILY loratadine 10 mg Tablet 10 mg PO DAILY Atrovent HFA 17 mcg/actuation Hfa Aerosol Inhaler 2 puff INHALATION QID lorazepam 0.5 mg tablet 0.5 mg PO QAM PRN tamsulosin [Flomax] 0.4 mg capsule 0.4 mg PO DAILY 21 Days Qty: 21 0RF ondansetron 4 mg tablet,disintegrating 4 mg PO Q8H Qty: 60 0RF polyethylene glycol 3350 [Miralax] 17 gram/dose powder 238 g PO DAILY PRN Rx Instructions: Take as directed by mouth, bowel prep albuterol sulfate [Ventolin HFA] 90 mcg/actuation HFA aerosol inhaler 2 puff inhalation Q4H PRN (Reason: wheezing) epinephrine 0.3 mg/0.3 mL auto-injector IM omeprazole 20 mg capsule,delayed release(DR/EC) 20 mg PO QAM cetirizine 10 mg tablet 10 mg PO QAM (DME) wrist splint See Rx Instructions .Route .MEDSUPPLY Qty: 2 0RF Rx Instructions: Were all night and as much as possible throughout the day Stand Alone Forms: Work/School Release
== END 2022-12-29 22:30 | disposition home or self-care (01) ==
PROVIDERS: Emergency Provider Emergency Medicine Emergency Medical Services; PCP Family Medicine
DX: M54.16 Radiculopathy, lumbar region (principal); M54.50 Low back pain, unspecified
CPT/HCPCS: 99283; 99284

== ENCOUNTER 2023-03-27 16:13 | Outpatient (REF) | payer MEDICAID, SELFPAY ==
--- NOTE | ~2023-03-27 | XR_ITS ---
EXAMINATION: XR KNEE, LEFT CLINICAL INFORMATION: Left knee pain. COMPARISON: 08/30/2022 TECHNIQUE: Four views of the left knee. FINDINGS: Alignment is anatomic. Joint spaces are maintained. No displaced fracture. No significant joint effusion. XR/XR knee LT 3V IMPRESSION: No acute abnormality.
== END 2023-03-27 16:14 | disposition home or self-care (01) ==
LOC: HO.HHCX 16:13
PROVIDERS: Visit Provider Nurse Practitioner Family
DX: M25.562 Pain in left knee (principal)
CPT/HCPCS: 73562

== ENCOUNTER 2023-04-03 09:37 | Outpatient (REF) | payer MEDICAID, SELFPAY ==
[2023-04-03 10:02] LABS: MANUAL DIFF FLAG NO
[2023-04-03 10:41] LABS: Basophils Percent Auto 0.5 % (0-2); Eosinophils Absolute Auto 0.1 X10*3/uL (0.0-0.4); Eosinophils Percent Auto 1.4 % (0-4); Hematocrit 46.2 % (37.0-47.0); Hemoglobin 15.2 g/dl (12.0-16.0); Imm Gran Abs Auto 0.01 X10*3/uL (0.00-0.03); Imm Gran Pct Auto 0.2 % (0.0-0.4); Lymphocytes Percent Auto 34.6 % (20-40); Mean Corpuscular HGB Conc 32.9 g/dl (31.0-35.0); Mean Corpuscular Hemoglobin 30.2 pg (27.0-33.0); Mean Corpuscular Volume 91.7 fL (80.0-98.0); Mean Platelet Volume 10.1 fL (9.4-12.3); Monocytes Absolute Auto 0.5 X10*3/uL (0.1-1.2); Monocytes Percent Auto 8.4 % (2-11); Neutrophils Absolute Auto 3.1 x10*3/uL (2.0-8.3); Neutrophils Percent Auto 54.9 % (45-73); Platelet Count 280 X10*3/uL (160-400); Red Blood Count 5.04 X10*6/uL (4.20-5.50); Red Cell Distribution Width 12.7 % (11.0-16.0); White Blood Count 5.7 X10*3/uL (4.8-10.8)
[2023-04-03 11:08] LABS: Rheumatoid Factor < 13.0 IU/mL (<15.0)
[2023-04-03 11:12] LABS: Alanine Aminotransferase 25 U/L (0-31); Albumin Level 4.3 g/dL (3.5-5.0); Alkaline Phosphatase 80 U/L (39-117); Anion Gap 9 (12-20); Aspartate Amino Transferase 23 U/L (5-31); Bilirubin Total 0.3 mg/dL (0.0-1.0); Blood Urea Nitrogen 10 mg/dL (9-16); C Reactive Protein 0.27 mg/dL (< or = 0.50); Calcium 9.9 mg/dL (8.4-10.2); Carbon Dioxide 27 mmol/L (22-29); Chloride 108 mmol/L (96-108); Estimated Glomerular Filt Rate > 60; Glucose Random 99 mg/dL (60-115); Potassium 3.9 mmol/L (3.3-5.1); Sodium 140 mmol/L (135-145); Total Protein 7.7 g/dL (6.5-8.0)
[2023-04-03 12:13] LABS: Erythrocyte Sedimentation Rate 7 MM/HR (0-20)
[2023-04-04 05:08] LABS: HBS Num1 30.78 mIU/mL (0-7.99); HBc Num1 0.13 S/CO (0.00-0.79); HBsAGNum1 0.34 S/CO (0.00-0.99); Hepatitis A Antibody IgM 0.18 Index (0-0.79); Hepatitis B Core Antibody Nonreactive (Nonreactive); Hepatitis B Surface Antigen Negative (Negative); ~HepC Num1 0.09 S/CO (0.00-0.79); ~Hepatitis A Antibody IgM Nonreactive (Nonreactive); ~Hepatitis B Surface Antibody REACTIVE (Nonreactive); ~Hepatitis C Antibody Nonreactive (Nonreactive)
[2023-04-05 11:32] LABS: Cyclic Citrullinated Peptide <16 UNITS
[2023-04-06 13:04] LABS: Prot Elec - Albumin 4.2 g/dL (3.8-4.8); Prot Elec - Alpha1 0.3 g/dL (0.2-0.3); Prot Elec - Alpha2 0.7 g/dL (0.5-0.9); Prot Elec - Beta 1 0.5 g/dL (0.4-0.6); Prot Elec - Beta 2 0.6 g/dL (0.2-0.5); Prot Elec - Gamma 1.1 g/dL (0.8-1.7); Prot Elec - Total Protein 7.3 g/dL (6.1-8.1)
[2023-04-07 09:22] LABS: IgA 368 mg/dL (47-310); IgG 1265 mg/dL (600-1640); IgM 178 mg/dL (50-300)
== END 2023-04-03 09:38 | disposition home or self-care (01) ==
LOC: HO.LAB 09:37
PROVIDERS: PCP Family Medicine; Visit Provider Student in an Organized Health Care Education/Training Program
DX: M06.9 Rheumatoid arthritis, unspecified (principal); Z11.59 Encounter for screening for other viral diseases
CPT/HCPCS: 36415; 80053; 82784; 84165; 85025; 85652; 86140; 86200; 86334; 86431; 86704; 86706; 86709; 86803; 87340

== ENCOUNTER 2023-04-04 13:50 | Outpatient (AMB) | payer MEDICAID, SELFPAY ==
[2023-04-04 13:55] VITALS: BP 112/66; TEMP 36.3; BMI 32.3
--- NOTE | 2023-04-04 13:55 | A.OFFVIS_ITS ---
Intake Vital Signs 04/04/23 13:55 Height 5 ft 3 in Weight 182 lb 8.684 oz BMI 32.3 BP 112/66 Blood Pressure Location Rt brachial Position Sitting Temp 97.4 F Temp Source Skin Intake Visit Reasons: lt knee pain Intake Note: Pt seen today for left knee pain. Pain progressed since last week. At last visit she was referred to hand surgeon, consult booked 01/31/23, pt no showed. Classified Advertising Clerk Required: No Accompanied by: Self / Same As Patient Allergies almond Allergy (Severe, Verified 04/04/23 14:01) ANAPHYLAXIS soy [SOY] Allergy (Severe, Verified 04/04/23 14:01) ANAPHYLAXIS Medication List - Last Reconciled 04/04/23 by Madie Amezquita MD albuterol sulfate 90 mcg/actuation (Ventolin HFA) 2 puffs inhalation Q4H PRN cetirizine 10 mg PO QAM cyclobenzaprine 10 mg PO TID PRN epinephrine IM ipratropium bromide 17 mcg/actuation (Atrovent HFA) 2 puffs inhalation QID loratadine 10 mg PO DAILY lorazepam 0.5 mg PO QAM PRN mometasone 50 mcg/actuation (Nasonex) 2 sprays intranasal DAILY morphine 15 mg PO Q4-6H PRN omeprazole 20 mg PO QAM ondansetron 4 mg PO Q8H pantoprazole 40 mg PO DAILY polyethylene glycol 3350 (Miralax) 238 grams PO DAILY PRN tamsulosin (Flomax) 0.4 mg PO DAILY 21 days [wrist splint Were all night and as much as possible throughout the day] HPI HPI Comments History of Present Illness Details Patient returns for follow-up after completion of her blood work. States that she continues to get entire right upper extremity numbness and tingling. She also has left knee pain, worse with walking. Intermittently her left knee luis m and gives out. Initial history: This is a 42-year-old female who presents for evaluation of multiple joint pain. She was evaluated by Dr. Muhammad in 2020. She was deemed not to have an autoimmune inflammatory arthritis. Patient states that over the last 6-7 years she has been having right hand pain with intermittent swelling of her right wrist. She has tingling and numbness of her forearm, fingers and sometimes associated with weakness of her hands. She gets swelling of her ankles starting in the afternoon associated with pain. He has morning stiffness of hand lasting 10-15 minutes she denies any skin rashes. Denies any history of DVT/PE. She states that she had a nerve study for her hands last year which showed carpal tunnel. She has been using wrist splints but she is getting worse. Initial history: Patient reports pain in both wrists, elbows, shoulders, knees and feet. Pain has been present for years and has been worsening. Has pain on daily basis that is worse in the morning. Symptoms are generally worse with activity. Has diffuse morning stiffness that lasts approximately 5 minutes. Feesl that her wrists can get swollen. Her symptoms can be worse with cold or damp weather. Has good days and bad days in terms of pain. Using Ibuprofen for pain, feels that it helps a little. Does not use it on a daily basis. Poor sleep, feels fatigued during the day. Patient denies Raynaud's, photosensitivity, oral or nasal ulcers, sicca symptoms, fevers, alopecia, history of miscarriage. Coule of maternal aunts with SLE. Also thinks a few cousins have SLE. [facility] Medical History Renal calculi Endometriosis in cutaneous scar Mild carpal tunnel syndrome of right wrist Rotator cuff impingement syndrome of right shoulder Migraine with aura and without status migrainosus, not intractable Bleeding hemorrhoids Abdominal wall mass History of colitis Asthma Surgical History Hx of endoscopy History of colonoscopy Hx of hysterectomy Hx of section Family History Father Diabetes Mother COPD (chronic obstructive pulmonary disease) Arthritis Maternal Grandfather Colon cancer Throat cancer Other Family history of autoimmune disorder Social History Household Members: Children Alcohol intake: never Second Hand Smoke Exposure: No Current occupational status: employed 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 Review of Systems GI Reports constipation and Reports nausea Musc Reports arthralgias, Reports joint swelling, Reports numbness, Reports stiffness and Reports tingling Skin/Breast Reports alopecia and Reports unusual bruising Neuro Reports numbness and Reports tingling Physical Exam Vital Signs: Last Vital Signs Temp 97.4 F 04/04/23 13:55 BMI result Body Mass Index 32.3 Const General: cooperative, healthy appearing and comfortable Nutritional Appearance: obese Orientation/consciousness: patient oriented x3 Limitations: no limitations HEENT Head: Yes normocephalic and Yes atraumatic Resp Effort & Inspection: normal respiratory effort and able to speak in complete sentences Neuro General: patient oriented x3 Extrem Other: Right wrist tenderness to palpation without obvious swelling Right wrist pain with full flexion Negative MCP squeeze test bilaterally Positive Tinel sign bilaterally, worse on the right Positive Spurling's test on the right No swollen or tender joints otherwise both hands and wrists Normal range of motion of both shoulders and elbows Positive rotator cuff provocative maneuvers right shoulder Right knee pain with full flexion Positive Dagoberto's test on the left Negative MTP tenderness negative MTP squeeze test Assessment & Plan Assessment & Plan (1) Bilateral carpal tunnel syndrome: Code(s): G56.03 - Carpal tunnel syndrome, bilateral upper limbs Plan: Versus cervical radiculopathy. Will repeat EMG to evaluate for CTS, will also check for cervical radiculopathy. (2) Internal derangement of left knee: Code(s): M23.92 - Unspecified internal derangement of left knee Plan: Ordered left knee MRI (3) Cervicalgia: Code(s): M54.2 - Cervicalgia Plan: Will check a cervical spine x-ray Plan I spent 26 minutes reviewing patient's chart, evaluating patient, ordering diagnostic workup, counseling patient and documenting in the chart Orders: Orders NE electromyogram (EMG) Today G56.03 - Carpal tunnel syndrome, bilateral upper limbs XR cervical spine 4V Today M54.2 - Cervicalgia MR knee LT wo con Today M23.92 - Unspecified internal derangement of left knee Coding Level of Care Code Est Pt Level 4 (21902) Diagnoses Bilateral carpal tunnel syndrome G56.03 Internal derangement of left knee M23.92 Cervicalgia M54.2
== END 2023-04-04 14:23 | disposition home or self-care (01) ==
PROVIDERS: PCP Family Medicine; Visit Provider Student in an Organized Health Care Education/Training Program
DX: G56.03 Carpal tunnel syndrome, bilateral upper limbs (principal); M23.92 Unspecified internal derangement of left knee; M54.2 Cervicalgia
CPT/HCPCS: 99214

== ENCOUNTER → 2023-04-04 13:50 | Outpatient (BNVA) | payer MEDICAID, SELFPAY | PROVIDERS: PCP Family Medicine; Visit Provider Student in an Organized Health Care Education/Training Program | DX: G56.03 Carpal tunnel syndrome, bilateral upper limbs (principal); M23.92 Unspecified internal derangement of left knee; M54.2 Cervicalgia | CPT/HCPCS: 99212 ==

== ENCOUNTER 2024-12-12 16:06 | Emergency (ER) | payer OTHER, SELFPAY ==
--- NOTE | ~2024-12-12 | CT_ITS ---
CLINICAL HISTORY: R flank pain, hx calculi CT abdomen and pelvis without contrast Comparison: CT/REG/SR - CT ABDOMEN PELVIS WO CON - 01/23/22 08:34 EDT Findings: No consolidation or effusion. The gallbladder and solid organs are within normal limits. Few bilateral nonobstructing renal stones measuring up to 4 mm ( 3 within the right kidney, and 1 within the left kidney ). Multiple small left kidney parapelvic cysts.. No hydronephrosis. No bowel obstruction, pneumoperitoneum, or pneumatosis. Moderate ascending colonic stool burden. Pelvic contents unremarkable. Normal appendix. The bones are intact. IMPRESSION: Few bilateral nonobstructing renal stones measuring up to 4 mm. No hydronephrosis. Moderate stool burden within the ascending colon. This document has been electronically signed by: Marcia Dugan MD on 12/12/2024 21:40:57
--- NOTE | 2024-12-12 16:47 | ED.BACK ---
HPI - Back Pain/Injury General Chief Complaint: Abdominal Pain Stated Complaint: Upper back pain, pain upon urination Time Seen by Provider: 12/12/24 19:24 Source: patient Mode of arrival: ambulatory Limitations: no limitations History of Present Illness ED Provider: tate morataya np HPI Narrative: patient is a 44-year-old female who presents emergency department for evaluation. She reports over the past 4 days she has been experiencing constant pain to the right posterior flank. Initially it was mild in onset but today pain was noticeably significant worse. she reports having urinary frequency over the past 2 weeks but no dysuria, urgency, or hematuria. She does note that after she urinates she does feel some mild relief from the right flank pain. It is described as a burning/ stabbing pain. She does endorse a history of kidney stones. She has tried acetaminophen without improvement. She denies fevers, chills, nausea, vomiting abdominal pain, diarrhea, constipation, concern for . When her pain gets severe she states that she feels somewhat dizzy and gets a tingling sensation to her right upper extremity. She denies it to be numb or having complete loss of sensation. In the pain is not severe she is not experiencing these symptoms. She has not had any recent head injury, headaches, vision changes, neck pain or neck stiffness, denies pain to the right upper extremity. Related Data Home Medications ?Medication ?Instructions ?Recorded ?Confirmed ipratropium bromide 17 2 puff inhalation QID 04/23/20 05/05/21 mcg/actuation HFA aerosol inhaler (Atrovent HFA) loratadine 10 mg tablet 10 mg PO DAILY 04/23/20 05/05/21 mometasone 50 mcg/actuation nasal 2 spray intranasal DAILY 04/23/20 05/05/21 spray (Nasonex) albuterol sulfate 90 mcg/actuation 2 puff inhalation Q4H PRN wheezing 12/09/22 aerosol inhaler (Ventolin HFA) cetirizine 10 mg tablet 10 mg PO QAM 12/09/22 epinephrine 0.3 mg/0.3 mL IM 12/09/22 injection, auto-injector lorazepam 0.5 mg tablet 0.5 mg PO QAM PRN 12/09/22 omeprazole 20 mg capsule,delayed 20 mg PO QAM 12/09/22 release polyethylene glycol 3350 17 238 g PO DAILY PRN 12/09/22 gram/dose oral powder (Miralax) Previous Rx's ?Medication ?Instructions ?Recorded ondansetron 4 mg disintegrating 4 mg PO Q8H #60 tabs 03/26/21 tablet pantoprazole 40 mg tablet,delayed 40 mg PO DAILY #90 tabs 05/19/21 release tamsulosin 0.4 mg capsule (Flomax) 0.4 mg PO DAILY 21 days #21 caps 01/11/22 wrist splint #2 ea 12/09/22 cyclobenzaprine 10 mg tablet 10 mg PO TID PRN pain, muscle 12/29/22 spasm #15 tabs morphine 15 mg immediate release 15 mg PO Q4-6H PRN pain #14 tabs 12/29/22 tablet docusate sodium 100 mg tablet 100 mg PO BID #14 tabs 12/12/24 polyethylene glycol 3350 17 gram 17 g PO DAILY #30 ea 12/12/24 oral powder packet (Miralax) Allergies Allergy/AdvReac Type Severity Reaction Status Date / Time almond Allergy Severe ANAPHYLAXIS Verified 12/12/24 16:49 soy [SOY] Allergy Severe ANAPHYLAXIS Verified 12/12/24 16:49 Review of Systems Review of Systems: Yes all other systems are reviewed and are negative PMFSH Past Medical History Attestation statement: The following information was validated with the patient. Source: old records reviewed Medical History Renal calculi Endometriosis in cutaneous scar Mild carpal tunnel syndrome of right wrist Rotator cuff impingement syndrome of right shoulder Migraine with aura and without status migrainosus, not intractable Bleeding hemorrhoids Abdominal wall mass History of colitis Asthma Surgical History Hx of endoscopy History of colonoscopy Hx of hysterectomy Hx of section Family History Family History Father Diabetes Mother COPD (chronic obstructive pulmonary disease) Arthritis Maternal Grandfather Colon cancer Throat cancer Other Family history of autoimmune disorder Social History Social History Household Members: Children Alcohol intake: never Second Hand Smoke Exposure: No Advance Directives: No Advance Directives Information Provided: Yes Current occupational status: employed 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 No acute distress.?Normal affect. Eyes: Pupils equal, round and reactive to light.? ENT: Pharynx normal.?? Neck: Normal inspection.? Neck supple.?? CVS: Heart sounds normal. Normal heart rate and rhythm.? Pulses normal.?? Respiratory: No respiratory distress.? Lung sounds clear to auscultation bilaterally?? Abdomen: Soft and non-tender. Normoactive bowel sounds. No pulsatile mass.? Positive right CVA tenderness.? Skin: Skin warm and dry.? Normal skin color.? ? Extremities: No lower extremity edema.? No calf ttp? Neuro: Moves all extremities spontaneously. Sensation intact bilaterally. CN II-XII intact. No focal neuro deficits. Ambulates with normal steady gait. Course Course Course Narrative: This is an RME: Additional HPI, ROS, PE not included below will be deferred to primary provider. RME assessment and note performed by: Musa Masters PA-C 44 yo female with PMHx of fibromyalgia, carpal tunnel, migraines, hemorrhoids, renal calculi presents to the ED today due to 1 week of right back pain. States pain is worse when bladder is full and causes a burning stabbing pain of the right flank. States she has been experiencing increased urinary frequency. Also endorses dizziness, and numbness of her right side. States she took Tylenol today without effect. PE: + CVA TTP Right side. Plan: Labs, UA Reevaluation(s) Reevaluation #1: CT of the abdomen and pelvis reveals bilateral nonobstructing renal stones measuring up to 4 mm, no hydronephrosis and a moderate stool burden within the ascending colon corresponding with her pain to the right posterior back/flank. Medications Administered Discontinued Medications Generic Name Dose Route Start Last Admin Trade Name Freq PRN Reason Stop Dose Admin Ketorolac Tromethamine 15 mg 12/12/24 20:14 12/12/24 20:47 Ketorolac Tromethamine 15 Mg/Ml Vial IM 12/12/24 20:15 15 mg ONCE ONE Administration Medical Decision Making Medical Decision Making [facility] Narrative: Patient is a 44-year-old female with past medical history of nephrolithiasis, endometriosis, colitis, asthma who presents emergency department for evaluation of right flank pain constant in nature over the past 4 days as per HPI but notably worse today. Has positive right CVA tenderness but a benign abdominal examination, no rigidity or guarding, no percussive tenderness or rebound tenderness. No signs of systemic toxicity she is afebrile without tachycardia, no hypotension. She had serologies obtained prior to my assumption of care CBC is without leukocytosis, anemia, or thrombocytopenia. She has a electrolyte derangement. No YESENIA. Minimally elevated AST /ALT at 32/53 respectively, with lipase normal. urinalysis is without signs of infection or microscopic hematuria. HCG negative. currently without findings to suggest acute surgical abdomen. Obtaining CT of the abdomen and pelvis to evaluate for obstructive uropathy, given location may possibly be secondary to acute hepatobiliary etiology such as cholecystitis, choledocholithiasis but given lack of abdominal pain nausea vomiting or food intolerance I suspect that this is less likely, she has no fever jaundice that would suggest acute cholangitis, Possibly this could be a biliary colic secondary to cholelithiasis but again I suspect that this is less likely. Differential Diagnosis Differential Diagnoses: The differential diagnosis associated with the presentation includes (See narrative above) Admission/Observation Consideration of admission/observation: Escalation of care including admission/observation considered (See narrative above ) Lab Data [facility] Lab Attestation statement: I reviewed the patient's lab results. ( See narrative above) 12/12/24 17:04 12/12/24 17:04 Labs: Lab Results 12/12/24 Range/Units 17:04 WBC 7.5 (4.8-10.8) X10*3/uL RBC 4.72 (4.20-5.50) X10*6/uL Hgb 14.3 (12.0-16.0) g/dl Hct 42.2 (37.0-47.0) % MCV 89.4 (80.0-98.0) fL MCH 30.3 (27.0-33.0) pg MCHC 33.9 (31.0-35.0) g/dl RDW 13.2 (11.0-16.0) % Plt Count 322 (160-400) X10*3/uL MPV 9.2 L (9.4-12.3) fL Immature Gran % (Auto) 0.3 (0.0-0.4) % Neut % (Auto) 66.1 (45-73) % Lymph % (Auto) 26.1 (20-40) % [place] % (Auto) 5.9 (2-11) % Eos % (Auto) 1.1 (0-4) % Baso % (Auto) 0.5 (0-2) % Lymph # (Auto) 2.0 (1.2-4.9) X10*3/uL [place] # (Auto) 0.4 (0.1-1.2) X10*3/uL Eos # (Auto) 0.1 (0.0-0.4) X10*3/uL Baso # (Auto) 0.0 (0.0-0.2) X10*3/uL Abs Immat Gran (auto) 0.02 (0.00-0.03) X10*3/uL Absolute Neuts (auto) 5.0 (2.0-8.3) x10*3/uL Absolute Nucleated RBC 0.000 (0.0-0.012) X10*3/uL Nucleated RBC % (auto) 0.0 (0.0-0.2) /100WBC Sodium 142 (135-145) mmol/L Potassium 3.8 (3.3-5.1) mmol/L Chloride 107 (96-108) mmol/L Carbon Dioxide 27 (22-29) mmol/L Anion Gap 12 (12-20) BUN 10 (9-16) mg/dL Creatinine 0.68 (0.5-1.4) mg/dL Estim Creat Clear Calc 106.0 Estimated GFR > 60 Random Glucose 131 H (60-115) mg/dL Calcium 9.8 (8.4-10.2) mg/dL Magnesium 2.0 (1.6-2.6) mg/dL Total Bilirubin 0.3 (0.0-1.0) mg/dL AST 32 H (5-31) U/L ALT 53 H (0-31) U/L Alkaline Phosphatase 83 (39-117) U/L Total Protein 7.6 (6.5-8.0) g/dL Albumin 4.4 (3.5-5.0) g/dL Lipase 16 (8-78) U/L Beta HCG, Quant < 2 mIU/mL Urine Color Yellow Urine Appearance Clear Urine pH 6.0 (5.0-9.0) Ur Specific [place] 1.015 (1.005-1.025) Urine Protein Negative (Neg-Trace) mg/dL Urine Glucose (UA) Negative (Negative) mg/dL Urine Ketones Negative (Negative) mg/dL Urine Blood Negative (Negative) Urine Nitrite Negative (Negative) Ur Leukocyte Esterase Negative (Negative) Radiology Impression Discussion of test interpretation with radiology: I have reviewed the radiologist's reading. Radiologist Impression: CT abdomen and pelvis without contrast Comparison: CT/REG/SR - CT ABDOMEN PELVIS WO CON - 01/23/22 08:34 EDT Findings: No consolidation or effusion. The gallbladder and solid organs are within normal limits. Few bilateral nonobstructing renal stones measuring up to 4 mm ( 3 within the right kidney, and 1 within the left kidney ). Multiple small left kidney parapelvic cysts.. No hydronephrosis. No bowel obstruction, pneumoperitoneum, or pneumatosis. Moderate ascending colonic stool burden. Pelvic contents unremarkable. Normal appendix. The bones are intact. IMPRESSION: Few bilateral nonobstructing renal stones measuring up to 4 mm. No hydronephrosis. Moderate stool burden within the ascending colon. External Record Review External record reviewed: Outpatient record Prescription Management I considered prescription management with: Other ( see narrative above) Discharge Plan Discharge Clinical Impression: Constipation, Renal calculi Patient Disposition: Home, Self-Care Instructions: Constipation (ED), Kidney Stones (ED) Additional Instructions: Imaging today shows that you have still is within the kidney, I suspect that this is less likely the cause for your pain, as they are not traveling down the ureter which is typically what results in pain associated with kidney stones. Urine sample does not show sign of infection. On the CT scan you have significant stool burden/constipation on the right side corresponding with your area of pain. I am sending to medications to the pharmacy to help; MiraLax powder to mix into 8 oz of water daily as well as Colace to take twice daily. Discontinue use if you develop diarrhea. Be sure that you are staying well hydrated drinking at least 8 8-12 oz glasses of water daily. Increase your dietary fiber intake. Follow-up with your primary care doctor. Return to emergency department any new or worsening symptoms or concerns. Prescriptions: New polyethylene glycol 3350 [Miralax] 17 gram powder in packet 17 g PO DAILY Qty: 30 0RF docusate sodium 100 mg tablet 100 mg PO BID Qty: 14 0RF No Action pantoprazole 40 mg tablet,delayed release (DR/EC) 40 mg PO DAILY Qty: 90 1RF mometasone [Nasonex] 50 mcg/actuation [place],Non-Aerosol 2 spray INTRANASAL DAILY loratadine 10 mg Tablet 10 mg PO DAILY Atrovent HFA 17 mcg/actuation Hfa Aerosol Inhaler 2 puff INHALATION QID lorazepam 0.5 mg tablet 0.5 mg PO QAM PRN tamsulosin [Flomax] 0.4 mg capsule 0.4 mg PO DAILY 21 Days Qty: 21 0RF cyclobenzaprine 10 mg tablet 10 mg PO TID PRN (Reason: pain, muscle spasm) Qty: 15 0RF morphine 15 mg tablet 15 mg PO Q4-6H PRN (Reason: pain) Qty: 14 0RF Rx Instructions: Patient may request partial fill; Partial Fill upon patient request. ondansetron 4 mg tablet,disintegrating 4 mg PO Q8H Qty: 60 0RF polyethylene glycol 3350 [Miralax] 17 gram/dose powder 238 g PO DAILY PRN Rx Instructions: Take as directed by mouth, bowel prep albuterol sulfate [Ventolin HFA] 90 mcg/actuation HFA aerosol inhaler 2 puff inhalation Q4H PRN (Reason: wheezing) epinephrine 0.3 mg/0.3 mL auto-injector IM omeprazole 20 mg capsule,delayed release(DR/EC) 20 mg PO QAM cetirizine 10 mg tablet 10 mg PO QAM (DME) wrist splint See Rx Instructions .Route .MEDSUPPLY Qty: 2 0RF Rx Instructions: Were all night and as much as possible throughout the day Referrals: Tara Chi MD [Primary Care Provider] - Print Language: Hebrew
[2024-12-12 16:48] VITALS: BP 117/76; PULSE 82; RESP 16; TEMP 36; O2SAT 100; BMI 33.2
[2024-12-12 17:11] LABS: MANUAL DIFF FLAG NO
--- OUTSIDE RECORDS SUMMARY | 2024-12-12 17:12 | XMS_ITS | Encounter Summary ---
Author Organization [employer] Address [address] [place] [address] Care Team Providers Care Steel Finisher Name Role Phone Nancy Bhatti MD Primary Care Provider [phone] Tara Chi MD Primary Care Provider [phone] Encounter Details Date Type Department Care Team ([facility] st Contact Info) Description 07/22/2022 Orders Only [facility] MEDICINE [address] [facility] [place] [address] Nancy Bhatti MD [address] [place] [address] Polyarthralgia (Primary Dx) Social History Tobacco Use Types Packs/Day Years Used Date Smoking Tobacco: Never Smokeless Tobacco: Never Alcohol Use Standard Drinks/Week Comments Never 0 (1 standard drink = 0.6 oz pur e alcohol) Comments Unknown Sex and Gender Information Value Date Recorded Sex Assigned at Female 05/16/2022 10:32 AM EDT Legal Sex Female 10:32 AM EDT Gender Identity Choose not to disclose 10:32 AM EDT Sexual Orientation Choose not to disclose 2021 10:32 AM EDT COVID-19 Exposure Response Date Recorded In the last 10 days, have yo u been in contact with someone who was confirmed or suspected to have Coronavirus/COVID-19? No / Unsure 07/22/2022 1:31 PM EST documented as of this encounter Plan of Treatment Not on file documented as of this encounter Visit Diagnoses Diagnosis Polyarthralgia- Primary Pain in joint, multiple sites documented in this encounter Care Teams Steel Finisher Relationship Specialty Start Date End Date Nancy Bhatti MD [address] [place] [id number] PCP - General Family Medicine 12/04/17 09/08/22 Tara Chi MD [address] [place] [id number] PCP - General Family Medicine 09/09/22 documented as of this encounter
[2024-12-12 17:15] LABS: Appearance Urine Clear; Color Urine Yellow; Glucose Urine UA Negative (Negative); Leukocyte Esterase Urine Negative (Negative); Nitrite Urine Negative (Negative); Specific Gravity - Urine 1.015 (1.005-1.025); Urine Blood Negative (Negative); Urine Ketones Negative (Negative); Urine Protein Negative (Neg-Trace)
[2024-12-12 17:17] LABS: Basophils Percent Auto 0.5 % (0-2); Eosinophils Absolute Auto 0.1 X10*3/uL (0.0-0.4); Eosinophils Percent Auto 1.1 % (0-4); Hematocrit 42.2 % (37.0-47.0); Hemoglobin 14.3 g/dl (12.0-16.0); Imm Gran Abs Auto 0.02 X10*3/uL (0.00-0.03); Imm Gran Pct Auto 0.3 % (0.0-0.4); Lymphocytes Percent Auto 26.1 % (20-40); Mean Corpuscular HGB Conc 33.9 g/dl (31.0-35.0); Mean Corpuscular Hemoglobin 30.3 pg (27.0-33.0); Mean Corpuscular Volume 89.4 fL (80.0-98.0); Mean Platelet Volume 9.2 fL (9.4-12.3); Monocytes Absolute Auto 0.4 X10*3/uL (0.1-1.2); Monocytes Percent Auto 5.9 % (2-11); Neutrophils Percent Auto 66.1 % (45-73); Platelet Count 322 X10*3/uL (160-400); Red Blood Count 4.72 X10*6/uL (4.20-5.50); Red Cell Distribution Width 13.2 % (11.0-16.0); White Blood Count 7.5 X10*3/uL (4.8-10.8)
[2024-12-12 17:29] LABS: Alanine Aminotransferase 53 U/L (0-31); Albumin Level 4.4 g/dL (3.5-5.0); Alkaline Phosphatase 83 U/L (39-117); Anion Gap 12 (12-20); Aspartate Amino Transferase 32 U/L (5-31); Bilirubin Total 0.3 mg/dL (0.0-1.0); Blood Urea Nitrogen 10 mg/dL (9-16); Calcium 9.8 mg/dL (8.4-10.2); Carbon Dioxide 27 mmol/L (22-29); Chloride 107 mmol/L (96-108); Estimated Glomerular Filt Rate > 60; Glucose Random 131 mg/dL (60-115); Potassium 3.8 mmol/L (3.3-5.1); Sodium 142 mmol/L (135-145); Total Protein 7.6 g/dL (6.5-8.0)
[2024-12-12 19:38] VITALS: BP 102/63; PULSE 79; RESP 18; TEMP 37.1; O2SAT 97
[2024-12-12 20:26] LABS: Lipase 16 U/L (8-78)
[2024-12-12 20:28] LABS: HCG Quantitative < 2 mIU/mL
[2024-12-12] MEDS: Ketorolac Tromethamine 15 MG/ML VIAL IM (20:47)
--- NOTE | 2024-12-12 20:51 | PC.NURSE ---
pt stated previously advised not to take NSAIDs d/t stomach inflammation. per Kane [employer]IOR CONTRACT SPECIALIST, ok to give toradol injection as IM not po. pt in agreement. given per sep.
[2024-12-12 23:00] VITALS: BP 95/60; PULSE 74; RESP 16; TEMP 36.8; O2SAT 100
== END 2024-12-12 23:00 | disposition home or self-care (01) ==
PROVIDERS: Nurse Practitioner Family; Emergency Provider Emergency Medicine; PCP Family Medicine
DX: M54.6 Pain in thoracic spine (principal); R30.0 Dysuria; K59.00 Constipation, unspecified; N20.0 Calculus of kidney; R42 Dizziness and giddiness; R10.2 Pelvic and perineal pain; Z79.899 Other long term (current) drug therapy
CPT/HCPCS: 36415; 74176; 80053; 81003; 83690; 83735; 84702; 85025; 96372; 99284; J1885

== ENCOUNTER → 2024-12-12 20:13 | Outpatient (BNV) | payer MEDICAID, SELFPAY | PROVIDERS: Emergency Provider Emergency Medicine; PCP Family Medicine; Visit Provider Student in an Organized Health Care Education/Training Program | DX: N20.0 Calculus of kidney (principal) | CPT/HCPCS: 74176 ==